=== PATIENT | male | born 1965 | race Caucasian/White ===

== ENCOUNTER → 2024-11-26 12:28 | Outpatient (REF) | payer BC, SELFPAY | LOC: RSP 12:28 | PROVIDERS: ATTENDING PHYSICIAN Family Medicine | DX: F17.210 Nicotine dependence, cigarettes, uncomplicated (principal) | CPT/HCPCS: 94727; 94729; 88738; 94060 ==

== ENCOUNTER → 2024-11-27 13:37 | Outpatient (REF) | payer BC, SELFPAY | LOC: HWRAD 13:37 | PROVIDERS: ATTENDING PHYSICIAN Family Medicine | DX: F17.210 Nicotine dependence, cigarettes, uncomplicated (principal) | CPT/HCPCS: 71271 ==

== ENCOUNTER 2025-02-23 08:18 | Emergency (ER) | payer BC, SELFPAY ==
[2025-02-23 08:29] VITALS: BP 165/97
[2025-02-23 08:55] VITALS: BMI 23.1
--- NOTE | 2025-02-23 09:05 | EDRN ---
Dr. Suresh in to see pt.
--- NOTE | 2025-02-23 09:05 | ED.GENMED ---
History of Present Illness
General
Chief Complaint: Abdominal Pain
Source: patient
Exam Limitations: none
Time Seen by Provider: 02/23/25 09:01
History of Present Illness
History of Present Illness:
See MDM
Past History
Past History
ED Past Medical History: NIDDM and Other (Polycystic liver disease)
ED Past Surgical History: Tonsilectomy and Urological
Social History
Tobacco: Former smoker
Personal:
Phy Exam
Physical Exam
Physical Exam:
See MDM
Course
Orders/Labs/Results
Orders:
Orders
02/23/25 08:48
IV Insert/Care/Rem.- Treatment PRN
02/23/25 09:04
0.9% Sodium Chloride 1000 ml [Nss] 1,000 ml IV BOLUS
Ketorolac [Toradol] 30 mg IV NOW STA
Ondansetron Injectable [Zofran] 4 mg IV NOW STA
02/23/25 09:05
CT Abd/pelvis W Iv Cont Urgent
Comment:
Reason For Exam: mid upper abd pain, vomiting
02/23/25 09:07
Complete Blood Count/With Diff Urgent
Comprehensive Metabolic Panel Urgent
Lipase Urgent
02/23/25 10:46
Dicyclomine [Bentyl] 10 mg PO NOW STA
Oxycodone/Acetaminophen [Percocet 5/325] 1 tablet PO NOW STA
Abnormal Lab Results
02/23/25
09:07
WBC 13.0 H 10^3/uL
(4.8-10.8)
Hgb 18.3 H g/dL
(13.0-18.0)
MCH 31.5 H pg
(27.0-31.0)
Abs Immat Gran (auto) 0.1 H 10^3/uL
(0-0.05)
Absolute Neuts (auto) 11.1 H 10^3/uL
(1.4-6.5)
Absolute Lymphs (auto) 0.9 L 10^3/uL
(1.2-3.4)
Absolute Monos (auto) 0.8 H 10^3/uL
(0.1-0.6)
Immature Gran % 0.7 H %
(0-0.5)
Neutrophils % 85.1 H %
(42.2-75.2)
Lymphocytes % 6.8 L %
(20.5-51.1)
Carbon Dioxide 31 H mmol/L
(22-30)
Glucose 154 H mg/dl
(70-99)
02/23/25 09:07
02/23/25 09:07
Vital Signs
Initial and Last Documented VS:
Initial Vital Signs
Temp Pulse Resp BP Pulse Ox
97 F 70 18 165/97 97
02/23/25 08:29 02/23/25 08:29 02/23/25 08:29 02/23/25 08:29 02/23/25 08:29
Last Documented Vital Signs
Temp Pulse Resp BP Pulse Ox
97 F 87 16 142/82 93
02/23/25 08:29 02/23/25 10:18 02/23/25 10:18 02/23/25 10:18 02/23/25 10:18
MDM/Problems Addressed
Differential Diagnosis Includes:
HPI and MDM Narrative:
59-year-old male presenting with mid upper abdominal pain. Patient noted the pain overnight. He did have some alcoholic drinks last night but denies any excess drinking. Patient initially thought this could be gastritis since he has had similar
episodes in the past. However, antacids were not helping and he started to vomit. On exam, he is well-appearing nontoxic. I cannot reproduce pain on exam.
I did discuss with patient that I cannot reliably rule out gastritis just from physical exam alone. He does acknowledge that. Given his prior history of small bowel obstruction, will obtain CT
Physical exam
General: Well appearing and non-toxic
HEENT: protecting airway. Mildly dry mucous membranes
Neck: appears supple
CV: No evidence of cyanosis
Resp: No accessory muscle use
Abd: Non-distended. No significant abdominal tenderness.
Extremities: No deformities
Neuro: alert
Psych: Normal affect
Skin: Intact
Problems Addressed including Acute and Chronic Conditions affecting care:
1. Abdominal pain
Acuity: acute
Prognosis: stable
Details: Discussed likely gastritis but will obtain CT given prior history of small bowel obstruction. Will give Toradol
2. Nausea and vomiting
Acuity: acute
Prognosis: stable
Details: Will give fluids and Zofran
Updates
CT is concerning for possible inflammatory bowel disease. We discussed calling GI for follow-up.
Differential Diagnosis (but not limited to): Gastritis, pancreatitis, enteritis
Testing considered: Abdominal x-ray
Drug therapy (if applicable): OTC meds, please see d/c instruction regarding Rx drugs
Amount and/or Complexity of Data Reviewed
Clinical info obtained from: Patient
External data reviewed: Prior history of small bowel obstruction which was managed medically
Labs I independently reviewed (but not limited to): Mild leukocytosis
Radiology: The CT scan was personally and independently reviewed. In addition, official CT report reviewed.
Pulse Ox: not hypoxic
EKG independently reviewed: N/A
Cell Repairer: N/A
Critical Care: N/A
Risk of Complication:
Social Determinants of health: Good social support
Discussed with other providers: N/A
Escalation of Care includes Admit/Obs: After being observed in the Emergency Department, pt stable for discharge.
Occasional wrong word or 'sound a like' substitutions may have occurred due to the inherent limitations of voice recognition software. Read the chart carefully and recognize, using context, where substitutions have occurred.
*Critical Care Note
Total Time (30-74mins, 75-104mins- exclusive of procedures): Not Applicable
ED Attending Note
-
Portions of this chart may have been created with voice recognition software.� Occasional wrong word or��sound alike� substitutions may have occurred due to the inherent limitations of voice recognition software.
Discharge Plan
Departure
Patient Disposition: Home (Routine Discharge)
Date of Disposition: 02/23/25
Time of Disposition: 10:48
Patient with high blood pressure during this ER visit?: Yes
Discharge Problem:
Abdominal pain
Instructions: Abdominal Pain, BLOOD PRESSURE
Prescriptions:
New
ondansetron 4 mg Tablet,Disintegrating
4 mg PO BIDPRN PRN (Reason: nausea/vomiting) Qty: 10 0RF
dicyclomine 10 mg capsule
10 mg PO BID PRN (Reason: Stomach pain) Qty: 20 0RF
No Action
metformin 500 mg Tablet
500 mg PO DAILY
azelastine 137 mcg (0.1 %) Aerosol,Olpe
1 spray INTRANASAL BID
fluticasone propionate [Flonase Allergy Relief] 50 mcg/actuation Olpe,Suspension
1 spray INTRANASAL DAILY
Referrals:
Hank Gómez MD [Family Provider] -
Tanvi Madrid MD [Active] -
Activity Restrictions/Additional Instructions:
Please return for any worsening symptoms.
You may return at any time if you have further concerns.
Please follow up with your doctor at the first available appointment, preferably this week.
As we discussed, the CT scan raised concern for possible inflammatory bowel disease such as Crohn's disease. Please have this discussed with the roving department end finder.
Thank you for choosing [facility].
Interventions
Interventions:
*Risk Screen - Suicide Last Done: 02/23/25 08:29
*General Assessment Last Done: 02/23/25 08:55
*Neglect/Abuse Screening Last Done: 02/23/25 08:29
*ED- Fall Risk Assessment Last Done: 02/23/25 08:55
*ED COVID-19 Vaccine History Last Done: 02/23/25 08:55
DA-Xlpbqd-Bgpwmsffnc Assessment Last Done: 02/23/25 09:21
Discharge Date and Time
Print Language: BELARUSIAN
[2025-02-23] MEDS: NSS 1000 IV (09:15)
[2025-02-23] MEDS: TORADOL 30 MG IV (09:16)
[2025-02-23] MEDS: ZOFRAN 4 MG IV (09:17)
[2025-02-23 09:21] VITALS: BP 144/99
[2025-02-23 09:29] LABS: Hemoglobin 18.3 g/dL (13.0-18.0); Mean Corp Hgb Conc. 35.2 g/dL (33.0-37.0); Mean Corpuscular Hgb 31.5 pg (27.0-31.0); Mean Corpuscular Volume 89.5 fL (80.0-94.0); Mean Platelet Volume 8.8 fL (7.4-10.4); Platelet Count 262 10^3/uL (130-400); Red Blood Cell Count 5.81 10^6/uL (4.70-6.10); Red Cell Dist. Width 12.2 % (11.5-14.5)
[2025-02-23 09:37] LABS: ALT (SGPT) 20 U/L (0-50); AST (SGOT) 27 U/L (17-59); Alkaline Phosphatase 79 U/L (38-126); Blood Urea Nitrogen 16 mg/dl (9-20); Calcium 10.1 mg/dl (8.4-10.2); Carbon Dioxide 31 mmol/L (22-30); Chloride 101 mmol/L (98-107); Estimated Creatinine Clearance 76 ml/min; Glucose 154 mg/dl (70-99); Lipase 165 U/L (23-300); Potassium 4.6 mmol/L (3.5-5.1); Sodium 141 mmol/L (135-145); Total Bilirubin 0.9 mg/dl (0.2-1.3); eGFR > 60.00
[2025-02-23 09:45] LABS: % Basophils 0.3 % (0-2); % Eosinophils 0.8 % (0-6); % Immature Granulocytes 0.7 % (0-0.5); % Lymphocytes 6.8 % (20.5-51.1); % Monocytes 6.3 % (1.7-9.3); % Neutrophils 85.1 % (42.2-75.2); Absolute Eosinophils 0.1 10^3/uL (0-0.7); Absolute Immature Granulocytes 0.1 10^3/uL (0-0.05); Absolute Lymphocytes 0.9 10^3/uL (1.2-3.4); Absolute Monocytes 0.8 10^3/uL (0.1-0.6); Absolute Neutrophils 11.1 10^3/uL (1.4-6.5); Nucleated Red Blood Cells % 0 % (-)
[2025-02-23 10:18] VITALS: BP 142/82
--- NOTE | 2025-02-23 10:43 | EDRN ---
Dr. Suresh in room w/pt at this time.
[2025-02-23] MEDS: PERCOCET 5/325 1 TABLET PO (10:56)
[2025-02-23] MEDS: BENTYL 10 MG PO (10:56)
[2025-02-23 11:09] VITALS: BP 138/84
== END 2025-02-23 11:10 | disposition home or self-care (01) ==
LOC: EMR 08:18
PROVIDERS: Emergency Medicine; EMERGENCY PHYSICIAN Student in an Organized Health Care Education/Training Program; FAMILY PHYSICIAN Family Medicine
DX: R10.9 Unspecified abdominal pain (principal); E11.9 Type 2 diabetes mellitus without complications; Z87.891 Personal history of nicotine dependence
CPT/HCPCS: 99284; 96374; 96375; 96361; 74177; 80053; 83690; 85025; Q9967

== ENCOUNTER 2025-04-28 06:27 | Day surgery (SDC) | payer BC, SELFPAY ==
[2025-04-28 12:22] LABS: Glucose - Point of Care 119 mg/dl (70-99)
== END 2025-04-28 15:37 | disposition home or self-care (01) ==
LOC: GI 06:27
PROVIDERS: ATTENDING PHYSICIAN Internal Medicine Gastroenterology
DX: R93.3 Abnormal findings on diagnostic imaging of other parts of digestive tract (principal); K63.3 Ulcer of intestine; R19.4 Change in bowel habit; K44.9 Diaphragmatic hernia without obstruction or gangrene; D12.3 Benign neoplasm of transverse colon; D12.2 Benign neoplasm of ascending colon; K63.5 Polyp of colon; K50.00 Crohn's disease of small intestine without complications
CPT/HCPCS: 45385; 45380; 43239; 88305; 82962

== ENCOUNTER → 2025-05-23 12:08 | Outpatient (REF) | payer BC, SELFPAY | LOC: MRI 3T 12:08 | PROVIDERS: ATTENDING PHYSICIAN Internal Medicine Gastroenterology; FAMILY PHYSICIAN Family Medicine | DX: R93.5 Abnormal findings on diagnostic imaging of other abdominal regions, including retroperitoneum (principal); K56.600 Partial intestinal obstruction, unspecified as to cause; K52.9 Noninfective gastroenteritis and colitis, unspecified; R63.4 Abnormal weight loss | CPT/HCPCS: 72197; 74183; A9585 ==

== ENCOUNTER 2025-07-18 20:54 | Inpatient (IN) | payer OTHER, SELFPAY ==
[2025-07-18 17:38] VITALS: BP 138/96
[2025-07-18 17:56] LABS: Hematocrit 47.5 % (39.0-52.0); Hemoglobin 16.4 g/dL (13.0-18.0); Mean Corp Hgb Conc. 34.5 g/dL (33.0-37.0); Mean Corpuscular Volume 85.7 fL (80.0-94.0); Nucleated Red Blood Cells % 0 % (-); Platelet Count 328 10^3/uL (130-400); Red Cell Dist. Width 13.3 % (11.5-14.5)
[2025-07-18 18:17] LABS: ALT (SGPT) 17 U/L (0-50); AST (SGOT) 24 U/L (17-59); Albumin 3.6 g/dl (3.5-5.0); Alkaline Phosphatase 58 U/L (38-126); Blood Urea Nitrogen 17 mg/dl (9-20); Calcium 9.9 mg/dl (8.4-10.2); Carbon Dioxide 31 mmol/L (22-30); Chloride 101 mmol/L (98-107); Glucose 138 mg/dl (70-99); Lipase 188 U/L (23-300); Potassium 4.0 mmol/L (3.5-5.1); Sodium 135 mmol/L (135-145); Total Protein 6.6 g/dl (6.3-8.2); eGFR > 60.00
[2025-07-18 18:26] LABS: Troponin I < 0.012 ng/ml
[2025-07-18 18:28] VITALS: BMI 20.6
--- NOTE | 2025-07-18 18:31 | EDRN ---
Alejandrina Carr PA in room w/ pt at this time.
--- NOTE | 2025-07-18 18:35 | ED.GENMED ---
History of Present Illness
<Kahlil Carr PA-C - Last Filed: 07/18/25 22:26>
General
Chief Complaint: Abdominal Symptoms
Time Seen by Provider: 07/18/25 18:24
History of Present Illness
History of Present Illness:
59-year-old male with recent diagnosis of Crohn's presents to the emergency department for evaluation of intractable nausea vomiting with hiccups and abdominal pain beginning late last night. He had a second dose of Skyrizi yesterday. Sent in by
GI with concern for SBO. Has passed flatus today but no bowel movements. No fevers or sweats.
Past History
<Kahlil Carr PA-C - Last Filed: 07/18/25 22:26>
Past History
ED Past Medical History: NIDDM and Other (Polycystic liver disease)
ED Past Surgical History: Tonsilectomy and Urological
Social History
Tobacco: Former smoker
Personal:
Review of Systems
<Kahlil Carr PA-C - Last Filed: 07/18/25 22:26>
Review of Systems
Allergies reviewed?: Yes
All Other Systems: ROS reviewed and negative except as documented in HPI and ROS
Phy Exam
<Kahlil Carr PA-C - Last Filed: 07/18/25 22:26>
Physical Exam
Physical Exam:
GEN: Well appearing, NAD, WDWN
HEENT: Oral mucosa moist, no scleral icterus
Cardiac: Regular rate
Lung: No respiratory distress, no tachypnea
Abdomen: Soft, mildly distended but no rigidity, grossly nontender
MSK: No gross deformity or injuries
Skin: Good color, no pallor or jaundice, no rashes
Neuro: AO x3, moves all extremities freely
Psych: Calm, cooperative
Course
<Kahlil Carr PA-C - Last Filed: 07/18/25 22:26>
Orders/Labs/Results
Orders:
Orders
07/18/25 17:41
Electrocardiogram (*1) Urgent
Reason for Study: Abdominal Pain
07/18/25 17:47
CMP [Comprehensive Metabolic Panel] Urgent
Complete Blood Count/With Diff Urgent
Lipase Urgent
Troponin I Urgent
07/18/25 18:29
CT Abd/Pel (IV only)-[facility] only Urgent
Comment:
Reason For Exam: abd pain, N/V, hx of Crohn's
07/18/25 18:34
HYDROmorphone [Dilaudid] 0.5 mg IV NOW STA
07/18/25 18:41
ChlorproMAZINE [Thorazine] 25 mg 0.9% Sodium Chloride 50 ml [Nss] 50 ml IV NOW
07/18/25 18:47
0.9% Sodium Chloride 1000 ml [Nss] 1,000 ml IV BOLUS
0.9% Sodium Chloride 500 ml [Nss] 1,000 ml IV BOLUS
07/18/25 20:19
MethylPREDNISolone PF [Solu-Medrol Pf] 60 mg IV NOW STA
07/18/25 20:23
Lidocaine 2% [Lidocaine Uro-Jet 2%] 1 syringe .ROUTE .STK-MED ONE
07/18/25 20:35
HYDROmorphone [Dilaudid] 0.5 mg IV NOW STA
07/18/25 20:43
Admit/Transfer Patient As Directed
Co-Sign Provider:
Level of Care: Inpatient admission
Assign to:: Medical/Surgical
Physician / Group: laura
Diagnosis: distal small bowel obstruction
Reason for Hospitalization: distal small bowel obstruction
Expected length of stay greater than two midnights?: Yes
ELOS- Estimated Length of Stay in days: 2
I certify the patient meets the requirements for IP care: Yes
07/18/25 20:44
Code Status As Directed
Resuscitation Status: Full Code
PRN Pain Medication Management As Directed
May give lesser potent ordered pain med per pt: Yes
preference::
Protocol:: Medication orders for pain may be administered in a
manner that supports deferring to patient preference
when the pt is:
- Requesting an ordered lesser potent pain medication.
Least to most potent pain medications are defined
as: acetaminophen < NSAID < tramadol < opioids
(morphine, oxycodone, hydromorphone).
- Requesting a lesser dose of the same medication IF
ORDERED.
- Requesting a less intrusive route of administration
if both routes are prescribed by the provider (PO <
IV).
Abnormal Lab Results
07/18/25
17:47
WBC 18.2 H 10^3/uL
(4.8-10.8)
Abs Immat Gran (auto) 0.1 H 10^3/uL
(0-0.05)
Absolute Neuts (auto) 15.6 H 10^3/uL
(1.4-6.5)
Absolute Monos (auto) 0.9 H 10^3/uL
(0.1-0.6)
Immature Gran % 0.6 H %
(0-0.5)
Neutrophils % 85.8 H %
(42.2-75.2)
Lymphocytes % 7.5 L %
(20.5-51.1)
Carbon Dioxide 31 H mmol/L
(22-30)
Glucose 138 H mg/dl
(70-99)
07/18/25 17:47
07/18/25 17:47
Vital Signs
Initial and Last Documented VS:
Initial Vital Signs
Temp Pulse Resp BP Pulse Ox
98.2 F 77 18 138/96 98
07/18/25 17:38 07/18/25 17:38 07/18/25 17:38 07/18/25 17:38 07/18/25 17:38
Last Documented Vital Signs
Temp Pulse Resp BP Pulse Ox
97.8 F 74 20 146/84 96
07/18/25 19:47 07/18/25 21:48 07/18/25 21:48 07/18/25 21:48 07/18/25 21:48
<Jag Suresh, DO - Last Filed: 07/18/25 20:19>
Orders/Labs/Results
Orders:
Orders
07/18/25 17:41
Electrocardiogram (*1) Urgent
Reason for Study: Abdominal Pain
07/18/25 17:47
CMP [Comprehensive Metabolic Panel] Urgent
Complete Blood Count/With Diff Urgent
Lipase Urgent
Troponin I Urgent
07/18/25 18:29
CT Abd/Pel (IV only)-[facility] only Urgent
Comment:
Reason For Exam: abd pain, N/V, hx of Crohn's
07/18/25 18:34
HYDROmorphone [Dilaudid] 0.5 mg IV NOW STA
07/18/25 18:41
ChlorproMAZINE [Thorazine] 25 mg 0.9% Sodium Chloride 50 ml [Nss] 50 ml IV NOW
07/18/25 18:47
0.9% Sodium Chloride 1000 ml [Nss] 1,000 ml IV BOLUS
0.9% Sodium Chloride 500 ml [Nss] 1,000 ml IV BOLUS
07/18/25 20:19
MethylPREDNISolone PF [Solu-Medrol Pf] 60 mg IV NOW STA
07/18/25 20:23
Lidocaine 2% [Lidocaine Uro-Jet 2%] 1 syringe .ROUTE .STK-MED ONE
07/18/25 20:35
HYDROmorphone [Dilaudid] 0.5 mg IV NOW STA
07/18/25 20:43
Admit/Transfer Patient As Directed
Co-Sign Provider:
Level of Care: Inpatient admission
Assign to:: Medical/Surgical
Physician / Group: laura
Diagnosis: distal small bowel obstruction
Reason for Hospitalization: distal small bowel obstruction
Expected length of stay greater than two midnights?: Yes
ELOS- Estimated Length of Stay in days: 2
I certify the patient meets the requirements for IP care: Yes
07/18/25 20:44
Code Status As Directed
Resuscitation Status: Full Code
PRN Pain Medication Management As Directed
May give lesser potent ordered pain med per pt: Yes
preference::
Protocol:: Medication orders for pain may be administered in a
manner that supports deferring to patient preference
when the pt is:
- Requesting an ordered lesser potent pain medication.
Least to most potent pain medications are defined
as: acetaminophen < NSAID < tramadol < opioids
(morphine, oxycodone, hydromorphone).
- Requesting a lesser dose of the same medication IF
ORDERED.
- Requesting a less intrusive route of administration
if both routes are prescribed by the provider (PO <
IV).
Abnormal Lab Results
07/18/25
17:47
WBC 18.2 H 10^3/uL
(4.8-10.8)
Abs Immat Gran (auto) 0.1 H 10^3/uL
(0-0.05)
Absolute Neuts (auto) 15.6 H 10^3/uL
(1.4-6.5)
Absolute Monos (auto) 0.9 H 10^3/uL
(0.1-0.6)
Immature Gran % 0.6 H %
(0-0.5)
Neutrophils % 85.8 H %
(42.2-75.2)
Lymphocytes % 7.5 L %
(20.5-51.1)
Carbon Dioxide 31 H mmol/L
(22-30)
Glucose 138 H mg/dl
(70-99)
07/18/25 17:47
07/18/25 17:47
Vital Signs
Initial and Last Documented VS:
Initial Vital Signs
Temp Pulse Resp BP Pulse Ox
98.2 F 77 18 138/96 98
07/18/25 17:38 07/18/25 17:38 07/18/25 17:38 07/18/25 17:38 07/18/25 17:38
Last Documented Vital Signs
Temp Pulse Resp BP Pulse Ox
97.8 F 74 20 146/84 96
07/18/25 19:47 07/18/25 21:48 07/18/25 21:48 07/18/25 21:48 07/18/25 21:48
<Kahlil Carr PA-C - Last Filed: 07/18/25 22:26>
MDM/Problems Addressed
MDM/Problems Addressed:
Imaging reveals small bowel obstruction with transition point at the distal small bowel likely resulting from stricture due to Crohn's. NG tube placed, will admit, IV steroids initiated per GI team request
<Kahlil Carr PA-C - Last Filed: 07/18/25 22:26>
*Pulse Oximetry
SaO2: 98
Oxygen Mode of Delivery: Room air
Patient hypoxic: no
*Critical Care Note
Total Time (30-74mins, 75-104mins- exclusive of procedures): Not Applicable
ED Attending Note
<Kahlil Carr PA-C - Last Filed: 07/18/25 22:26>
-
Portions of this chart may have been created with voice recognition software.� Occasional wrong word or��sound alike� substitutions may have occurred due to the inherent limitations of voice recognition software.
<Jag Suresh, DO - Last Filed: 07/18/25 20:19>
ED Attending Note
Patient seen and examined by attending physician: Yes
I performed the substantive portion of visit, reviewed & personally made and approve the management plan that is documented in note by myself or QUYNH.: Yes
ED Attending Note:
I have seen and evaluated the patient with a [id number]-jfdd encounter. I have spoken to the advance practicer provider and involved in the medical history, the physical exam, medical decision making.
Evaluation and management service: agree unless noted differently below.
Results interpretation: agree unless noted differently below.
Focused HPI: 59-year-old male presenting for evaluation of abdominal pain and vomiting. Patient was recently diagnosed with Crohn's disease. Based on his symptoms, he was sent in to rule out Crohn's flare versus small bowel obstruction
Physical exam: By the time I evaluate the patient, patient has already received pain medicine. On my exam, he is lying in bed comfortably. Abdomen soft
Medical Decision Making: CT pending but given his symptoms, patient will likely require admission for GI evaluation
Discharge Plan
Departure
Patient Disposition: Admit
Date of Disposition: 07/18/25
Time of Disposition: 20:26
Admit to: Med/Surg
Presentation/result/management discussed w/ accepting MD/DO: Hospitalist
Discharge Problem:
Small bowel obstruction, Crohn's ileocolitis
Interventions
Interventions:
*Risk Screen - Suicide Last Done: 07/18/25 18:35
*General Assessment Last Done: 07/18/25 18:28
*Neglect/Abuse Screening Last Done: 07/18/25 18:35
*ED- Fall Risk Assessment Last Done: 07/18/25 18:28
*ED COVID-19 Vaccine History Last Done: 07/18/25 18:28
SN-Ghczwa-Fcrqusyyex Assessment Last Done: 07/18/25 19:47
[2025-07-18] MEDS: DILAUDID 0.5 MG IV ×2 (18:42→20:39)
--- NOTE | 2025-07-18 18:42 | EDRN ---
Pharmacy called for randall at this time.
[2025-07-18] MEDS: NSS 1000 IV (18:48)
[2025-07-18] MEDS: THORAZINE 51 MG IV (18:58)
[2025-07-18 19:47] VITALS: BP 141/76
[2025-07-18] MEDS: SOLU-MEDROL PF 60 MG IV (20:38)
--- NOTE | 2025-07-18 20:49 | HPS.HSE ---
Family Physician
-
Family Physician: Hank Gómez
Chief Complaint
-
abdominal pain
History of Present Illness
59-year-old male past medical history of polycystic liver/kidney disease, Crohn's disease diagnosed this year on Skyrizi, prior small bowel obstruction, anxiety/depression, prediabetes, hyperlipidemia, presenting with intractable nausea and
vomiting, hiccups, abdominal pain starting last night. He was sent in by GI due to concern for small bowel obstruction. He passed gas today but no bowel movements. Last bowel movement yesterday. Denies fever or sweating.
He denies any prior intra-abdominal surgeries.
He was diagnosed with Crohn's disease earlier this year and only received a second dose of Skyrizi.
Denies smoking alcohol use.
Medical History
Past Medical History
Past Medical History: Reports Other (polycystic liver/kidney disease, Crohn's disease diagnosed this year on Skyrizi, prior small bowel obstruction, anxiety/depression, prediabetes, hyperlipidemia,)
Past Surgical History: Reports Other (Tonsilectomy and Urological)
Social History
Tobacco: Non-smoker
Alcohol: None
Drug: None
Family History
Family History: Not pertinent
Allergies / Home Medications
Allergies reflects when Allergies were last updated in [employer].
Home Medications with original date entered in [employer]
Allergy/Medication List:
Allergies
Allergy/AdvReac Type Severity Reaction Status Date / Time
No Known Allergies Allergy Verified 02/23/25 08:29
Home Medications
metformin 500 mg tablet 500 mg PO DAILY 08/04/22
fluticasone propionate 50 mcg/actuation nasal spray,suspension (Flonase Allergy Relief) 1 spray intranasal DAILY 04/26/23
dicyclomine 10 mg capsule 10 mg PO BID PRN Stomach pain #20 caps 02/23/25
ondansetron 4 mg disintegrating tablet 4 mg PO BIDPRN PRN nausea/vomiting #10 tabs 02/23/25
Lexapro 20 mg PO DAILY 07/18/25
Wellbutrin 1 tab PO DAILY 07/18/25
Review of Systems
-
History Source: Patient
A 12 point ROS was completed and negative except as noted: Yes
Constitutional: Reports No Symptoms
EENT: Reports No Symptoms
Respiratory: Reports No Symptoms
Cardiac: Reports No Symptoms
Abdomen/GI: Reports See HPI
: Reports No Symptoms
Musculoskeletal: Reports No Symptoms
Skin: Reports No Symptoms
Neurological: Reports No Symptoms
Endocrine: Reports No Symptoms
Hematologic/Lymphatic: Reports No Symptoms
Psych: Reports No Symptoms
Physical Exam
Vital Signs
Vital Signs
Temp Pulse Resp BP Pulse Ox
97.8 F 87 20 141/76 95
07/18/25 19:47 07/18/25 19:47 07/18/25 19:47 07/18/25 19:47 07/18/25 19:47
Physical Exam
General: Well Developed, Well Nourished and No Apparent Distress
HEENT: NormoCephalic, Moist mucous membranes and Atraumatic
Respiratory: Clear
Cardiac: S1/S2 and Regular Rhythm; No Murmur or Rub
GI: Soft, Non Distended, Normal Bowel Sounds and Tender (periumbilical ); No Organomegaly
Rectal: Deferred by Provider
Musculoskeletal: No Clubbing, No Cyanosis and No Edema
Skin: No Rash
Neuro: Nonfocal/grossly intact
Laboratory Results
-
07/18/25 17:47
07/18/25 17:47
Laboratory Results
Total Bilirubin 0.6 mg/dl (0.2-1.3) 07/18/25 17:47
AST 24 U/L (17-59) 07/18/25 17:47
ALT 17 U/L (0-50) 07/18/25 17:47
Alkaline Phosphatase 58 U/L (38-126) 07/18/25 17:47
Troponin I < 0.012 ng/ml 07/18/25 17:47
Lipase 188 U/L (23-300) 07/18/25 17:47
Data Reviewed
-
Lab Data: Labs Reviewed by me
Old Records: Reviewed
Impression/Plan
-
IMPRESSION:
PLAN:
# Distal small bowel obstruction secondary to stricture likely from Crohn's disease
# Crohn's disease on Skyrizi
- CT scan shows distal small bowel structure with transition point in the lower anterior pelvis likely secondary to stricture, scattered areas of bowel wall thickening consistent with inflammatory bowel disease
- N.p.o. including oral medications for now
- IV fluids
- Zofran, Dilaudid as needed
-NG tube to be placed
- GI consulted
- General Surgery consulted
History of prior small bowel obstruction
Polycystic liver disease
Prediabetes
- Hold metformin
- Insulin sliding scale
Anxiety/depression
- Continue Lexapro, Wellbutrin
Hyperlipidemia
Full code
DVT prophylaxis�heparin
N.p.o.
[2025-07-18 20:53] VITALS: BP 156/83
[2025-07-18 21:48] VITALS: BP 146/84
[2025-07-18 23:18] VITALS: BP 146/81; BMI 21.5
[2025-07-19] MEDS: NSS 1000 IV ×3 (00:01→19:13)
[2025-07-19] MEDS: DILAUDID 0.5 MG IV (00:23)
[2025-07-19 05:53] LABS: Glucose - Point of Care 134 mg/dl (70-99)
--- NOTE | 2025-07-19 06:46 | CON.GI ---
Addendum entered and electronically signed by Gregoria Coley MD 07/19/25 11:48:
I saw and examined the patient.
The DRAWING CHECKER or PA's note was reviewed and I agree with the note.
Comment:
This patient is a 59-year-old man with a history of hypercholesterolemia and Crohn's disease who has a history of intermittent partial small bowel obstructions and he was recently started on Skyrizi for Crohn's disease. He was admitted after he had
significant abdominal distention and vomiting with hiccups. He did have an NG tube placed and was given IV steroids. Labs done last month do show an elevated fecal calprotectin at 5690. His NG tube did drain 1600 cc and has now since decreased.
He does admit to weight loss and on admission did have a white blood count.
abd: currently soft and nondistended, nontender
impression:
crohns
PSBO: inflammatory vs stricturing
plan:
IV steroids
recheck sed rate, crp
continue NGT and monitor output
surgery following
antiemetics
sq heparin
Original Note:
Consultation
-
Date/Time Consultation Requested: 07/18/25 2240
Date/Time Consultation Performed: 07/19/25 0815
Requesting Provider: Christofer Pablo MD
Performing Provider: MEGAN Wall, Gregoria Coley MD
Reason for Consultation: small bowel obstruction/ hx crohn's disease
Medical History
Chief Complaint / HPI
Chief Complaint: abdominal pain, vomiting
History of Present Illness:
Pt is a 59yo with hx hypercholesterolemia, pre DM, anxiety/depression, polycystic liver disease, retroperitoneal lymphangiomatosis, melanoma, tobacco abuse, daily Marijuana use, b/l ocular HTN, meningitis, glaucoma and newly diagnosed crohns
disease. Pt has history of colonoscopy in 2014 with TI erosions, PSBO in 2021 and 2022 with possible gastroenteritis then presented in January with recurrent abdominal pain with nausea and vomiting with SB thickening and concern for crohns disease.
He had follow up with Dr. Owen in February and completed EGD, colonoscopy and MRE with continued concern for crohns disease. Pt was started on Skyrizi on 06/19 and went for second dose 07/17/25. He called on office 07/18 with concern for vomiting,
hiccups and abdominal pain and directed to ER. On admission noted with CT concern for distal SBO likely secondary to stricture. NGT was placed and IV steroids given on admission. 06/10 CRP 44, ESR 41, fecal radha 5690.
In review with patient he did not recall any concern for IBD in 2014 with colonoscopy. He then began with obstruction then crohns diagnosis as above. He admits to recent anxiety and depression issues with tapia of medication with Lexapro and
diarrhea several months ago. He began about 10 days prior to admission with vomiting after crab imperial. Symptoms then resolved and he the started again with vomiting on 07/19 in the AM and symptoms progressed with increased pain leading to
admission. Pt otherwise admits to GERD which is new with nausea/vomiting initially small volume dark brown emesis then large volume up to 1600ml recorded after NGT placement with continued drainage. He admits to improved abdominal pain, and admits
to diarrhea several months ago and occasional constipation. + 25 lbs wt loss over last few months. No blood or black in stools. On admission WBC 18,200, glucose 138 with otherwise stable labs. Denies NSAID use.
07/18/25 CT Abd/Pel (IV only)-DH only
1. Distal small bowel obstruction with transition point in the low anterior pelvis likely secondary to stricture.
2. Scattered areas of bowel wall thickening in keeping with inflammatory bowel disease
05/23/25- MRE Multiple regions of abnormal wall thickening and enhancement of the small bowel, including the distal ileum. Findings very likely represent Crohn's disease with skip areas of small bowel involvement.
No evidence for significant bowel obstruction at this time.Hepatomegaly with innumerable hepatic cysts. Cholelithiasis. No evidence for biliary ductal dilation.
04/28/25- colonoscopy 2- 4-6 mm polyp TC- TA , 1 -6 mm TA polyp CA, 1 - 6 mm polyp DC - HP, few ulcer TI c/w crohns disease - bx focal acute mucosal ulceration, with chronic active ileitis glandular crypt distortion
04/28/25- EGD normal esophagus, small HH normal duodenum SB bx neg
Past Medical History
Past Medical History: Hypercholesterolemia, NIDDM (pre DM), Psychiatric (anxiety/depression) and Other (polycystic liver disease, crohns disease, retroperitoneal lymphangiomatosis, melanoma, b/l ocular HTN, meningitis, glaucoma)
Past Surgical History: Tonsilectomy, Urological (vasectomy) and Other (adenoidectomy)
Social History
Tobacco: Smoker (<1/2 PPD )
Alcohol: None
Drug: Marijuana
Personal:
Living: With Family
Employment: Employed (current medical leave )
Family History
Family History: Other (no family hx UC or crohns )
Allergies / Home Medications
Allergy/AdvReac Type Severity Reaction Status Date / Time
No Known Allergies Allergy Verified 02/23/25 08:29
�Medication �Instructions �Recorded
metformin 500 mg tablet 500 mg PO DAILY 08/04/22
fluticasone propionate 50 1 spray intranasal DAILY 04/26/23
mcg/actuation nasal
spray,suspension (Flonase Allergy
Relief)
dicyclomine 10 mg capsule 10 mg PO BID PRN Stomach pain #20 02/23/25
caps
ondansetron 4 mg disintegrating 4 mg PO BIDPRN PRN nausea/vomiting 02/23/25
tablet #10 tabs
Lexapro 20 mg PO DAILY 07/18/25
Wellbutrin 1 tab PO DAILY 07/18/25
Review of Systems
-
History Source: Patient
Constitutional: Reports Weight Loss
EENT: Reports No Symptoms
Respiratory: Reports No Symptoms
Abdomen/GI: Reports Abdominal Pain, Nausea, Vomiting (dark emesis ), Diarrhea and Constipated
: Reports No Symptoms
Musculoskeletal: Reports No Symptoms
Skin: Reports No Symptoms
Neurological: Reports Weakness and Other (recent anxiety/depression issues)
Endocrine: Reports No Symptoms
Hematologic/Lymphatic: Reports No Symptoms
Vital Signs
Temp Pulse Resp BP Pulse Ox
97.5 F 77 18 146/81 96
07/18/25 23:18 07/18/25 23:18 07/18/25 23:18 07/18/25 23:18 07/18/25 23:18
Physical Exam
Exam
General: Well Developed, Well Nourished and No Apparent Distress
HEENT: Normocephalic and Anicteric
Respiratory: Clear
Cardiac: Regular Rhythm
GI: Soft, Non Distended, Tender (minimal ) and Other (NGT with about 500ml in canister with fecullant brown emesis )
Musculoskeletal: No Clubbing and No Cyanosis
Skin: Warm and Dry
Neuro: Awake, Alert and AO x 3
Psych: Calm
Results
WBC 18.2 10^3/uL (4.8-10.8) H 07/18/25 17:47
Hgb 16.4 g/dL (13.0-18.0) 07/18/25 17:47
Hct 47.5 % (39.0-52.0) 07/18/25 17:47
MCV 85.7 fL (80.0-94.0) 07/18/25 17:47
Plt Count 328 10^3/uL (130-400) 07/18/25 17:47
Absolute Neuts (auto) 15.6 10^3/uL (1.4-6.5) H 07/18/25 17:47
Sodium 135 mmol/L (135-145) 07/18/25 17:47
Potassium 4.0 mmol/L (3.5-5.1) 07/18/25 17:47
Chloride 101 mmol/L (98-107) 07/18/25 17:47
Carbon Dioxide 31 mmol/L (22-30) H 07/18/25 17:47
BUN 17 mg/dl (9-20) 07/18/25 17:47
Creatinine 0.9 mg/dL (0.7-1.3) 07/18/25 17:47
Calcium 9.9 mg/dl (8.4-10.2) 07/18/25 17:47
Total Bilirubin 0.6 mg/dl (0.2-1.3) 07/18/25 17:47
AST 24 U/L (17-59) 07/18/25 17:47
ALT 17 U/L (0-50) 07/18/25 17:47
Alkaline Phosphatase 58 U/L (38-126) 07/18/25 17:47
Lipase 188 U/L (23-300) 07/18/25 17:47
Diagnostic Image Results:
07/18/25 CT Abd/Pel (IV only)-DH only
1. Distal small bowel obstruction with transition point in the low anterior pelvis likely secondary to stricture.
2. Scattered areas of bowel wall thickening in keeping with inflammatory bowel disease
05/23/25- MRE Multiple regions of abnormal wall thickening and enhancement of the small bowel, including the distal ileum. Findings very likely represent Crohn's disease with skip areas of small bowel involvement.
No evidence for significant bowel obstruction at this time.Hepatomegaly with innumerable hepatic cysts. Cholelithiasis. No evidence for biliary ductal dilation.
04/28/25- colonoscopy 2- 4-6 mm polyp TC- TA , 1 -6 mm TA polyp CA, 1 - 6 mm polyp DC - HP, few ulcer TI c/w crohns disease - bx focal acute mucosal ulceration, with chronic active ileitis glandular crypt distortion
04/28/25- EGD normal esophagus, small HH normal duodenum SB bx neg
02/23/2025 CT abdomen pelvis with contrast scattered foci of moderate circumferential small bowel wall thickening probable inflammatory bowel disease, moderate mesenteric lymphadenopathy, mild retroperitoneal adenopathy, mild gastric distention, mild
small bowel dilatation, numerous hypodense hepatic lesions suggesting cysts, hepatomegaly, gallstones
04/25/2023 CT abdomen and pelvis severe distention of the stomach with fluid and distention of the proximal jejunum, possible PSBO secondary to adhesions versus gastroenteritis versus IBD or adynamic ileus, mild mesenteric retroperitoneal nick
hepatis and portacaval lymphadenopathy, polycystic liver disease and mild hepatomegaly, gallstones, mild chronic bilateral renal disease, circumferential wall thickening in the distal esophagus suggesting esophagitis, mild to moderate scarring and
subsegmental atelectasis in the lower lobes
08/04/2022 CT abdomen and pelvis small bowel obstruction with transition point in the pelvis between distended proximal jejunal bowel loops and completely collapsed distal ileal small bowel loops possible adhesive band, moderate diverticulosis
throughout the colon, polycystic liver disease and mild hepatomegaly, nick hepatis portacaval and mesenteric lymphadenopathy mild retroperitoneal lymphadenopathy
10/27/[address] Concepcion few ulcers in the TI- acute and moderate to marked chronic inflammation noted no granulomas, mild inflammation was found at 25- benign colonic mucosa, erosion at 15 cm from anus-benign colonic mucosa passive
vascular congestion and edema, random colon biopsies were negative microscopic colitis.
Assessment / Plan
-
Pt is a 59yo with hx hypercholesterolemia, pre DM, anxiety/depression, polycystic liver disease, retroperitoneal lymphangiomatosis, melanoma, tobacco abuse, daily Marijuana use, b/l ocular HTN, meningitis, glaucoma and newly diagnosed crohns
disease. Pt has history of colonoscopy in 2014 with TI erosions, PSBO in 2021 and 2022 with possible gastroenteritis then presented in January with recurrent abdominal pain with nausea and vomiting with SB thickening and concern for crohns disease.
He had follow up with Dr. Owen in February and completed EGD, colonoscopy and MRE with continued concern for crohns disease. Pt was started on Skyrizi on 06/19 and went for second dose 07/17/25. He called on office 07/18 with concern for vomiting,
hiccups and abdominal pain and directed to ER. On admission noted with CT concern for distal SBO likely secondary to stricture. NGT was placed and IV steroids given on admission. 06/10 CRP 44, ESR 41, fecal radha 5690. In review with patient he
did not recall any concern for IBD in 2014 with colonoscopy. He then began with obstruction then crohns diagnosis as above. He admits to recent anxiety and depression issues with tapia of medication with Lexapro and diarrhea several months ago.
He began about 10 days prior to admission with vomiting after crab imperial. Symptoms then resolved and he the started again with vomiting on 07/19 in the AM and symptoms progressed with increased pain leading to admission. Pt otherwise admits to
GERD which is new with nausea/vomiting initially small volume dark brown emesis then large volume up to 1600ml recorded after NGT placement with continued drainage. He admits to improved abdominal pain, and admits to diarrhea several months ago and
occasional constipation. + 25 lbs wt loss over last few months. No blood or black in stools. On admission WBC 18,200, glucose 138 with otherwise stable labs. Denies NSAID use.
07/18/25 CT Abd/Pel (IV only)-DH only
1. Distal small bowel obstruction with transition point in the low anterior pelvis likely secondary to stricture.
2. Scattered areas of bowel wall thickening in keeping with inflammatory bowel disease
05/23/25- MRE Multiple regions of abnormal wall thickening and enhancement of the small bowel, including the distal ileum. Findings very likely represent Crohn's disease with skip areas of small bowel involvement.
No evidence for significant bowel obstruction at this time.Hepatomegaly with innumerable hepatic cysts. Cholelithiasis. No evidence for biliary ductal dilation.
04/28/25- colonoscopy 2- 4-6 mm polyp TC- TA , 1 -6 mm TA polyp CA, 1 - 6 mm polyp DC - HP, few ulcer TI c/w crohns disease - bx focal acute mucosal ulceration, with chronic active ileitis glandular crypt distortion
04/28/25- EGD normal esophagus, small HH normal duodenum SB bx neg
-distal SBO with concern for crohn's related inflammatory vs stricture
-hx crohn's disease with newly started Skyrizi
-polycystic liver disease
-leukocytosis
-mild elevated FBS with hx pre DM
-anxiety/depression with diarrhea with Lexapro
other med problems:
hypercholesterolemia, pre DM, anxiety/depression, polycystic liver disease, retroperitoneal lymphangiomatosis, melanoma, b/l ocular HTN, meningitis, glaucoma
PLAN:
etiology of symptoms with concern for SBO related to crohns inflammatory vs stricture
pt feeling better with NGT decompression overnight
cont NPO
NGT decompression-- monitor output and stool function
for surgical eval-- discussed risk of stricturing/rupture
PPI added today will continue daily
IV steroids given on admission will continue Methylprednisone 20mg Q 8 hours
OP Skyrizi 2nd dose given 07/17
antiemetics as needed
cont SQ heparin as high risk for DVT with active IBD
monitor FBS per medical team with adding steroids
support given
-
-
Thank you for consultation and allowing me to participate in the patient's care. Please call the software test and validation engineer GI physician during the after hours with any questions or concerns.
[2025-07-19 07:00] VITALS: BP 162/91
[2025-07-19] MEDS: PROTONIX IV 40 MG IV (08:44)
[2025-07-19] MEDS: NSS (PRESERVATIVE FREE) 10 ML IV (08:45)
[2025-07-19] MEDS: HEPARIN 5000 UNITS SC ×2 (08:47→19:13)
[2025-07-19] MEDS: SOLU-MEDROL PF 20 MG IV ×3 (09:00→23:09)
--- NOTE | 2025-07-19 09:30 | W.PN.HOSP.TC ---
Today's Communication/Plan
-
Continue NG tube
Continue steroid treatment
Watch for any worsening abdominal pain
Monitoring sugar levels
Surgical evaluation today
Continue NPO
Assessment / Plan
Assessment / Plan
Assessment:
59-year-old male with a past medical history of polycystic liver/kidney disease, Crohn's disease diagnosed this year and started on Skyrizi (received 2 doses), previous small bowel obstructions, anxiety/depression, prediabetes, hyperlipidemia
presented to the ED due to recent intractable nausea and vomiting along with abdominal pain that started the night before. He was sent in by GI due to concern for possible small bowel obstruction. He has not had any bowel movements however
continues to pass gases. He does not report any fever or sweating. In the ED, he underwent CT scan which showed distal small bowel stricture with transition point in the lower anterior pelvis likely secondary to stricture. NG tube was placed with
continues to drain brown fluid. General surgery was consulted, GI was consulted, patient continued to feel better following drainage of fluid from his NG tube.
Plan:
# Distal small bowel obstruction secondary to stricture likely from Crohn's disease
# Crohn's disease on Skyrizi
- Patient continues to be n.p.o., on NG tube which continues to drain brown fluid. Continue decompression with NG tube
- GI consulted, input appreciated
- General surgery consulted input appreciated
- Continue IV fluids, Zofran and Dilaudid as needed
- Patient started on Protonix due to gastric reflux
- Continue IV steroids, methylprednisolone 20 mg every 8 hours
- Will continue to monitor blood sugar levels initially due to steroid therapy
- Skyrizi second dose was given on 07/17
# Prediabetes
- Continue to hold metformin
- Continue with insulin sliding scale, glucose monitoring
- Will check HbA1c
# Anxiety/depression
- Continue Lexapro and Wellbutrin once able to give medication orally
- Will give IV Valium as needed for increased anxiety until then
# History of prior small bowel obstruction
# Polycystic liver disease
Full code
DVT prophylaxis: Subcu heparin q 12
Anticipated Discharge: 24 - 48 hours
Subjective/Interval History
-
Date of Service: July 19, 2025
Patient seen this morning was resting comfortably in his bed. Had NG tube placed which was continuing to drain dark brownish fluid. Patient's only complaint was the uncomfortable nature of having an NG tube. Otherwise does not report any
abdominal pain, nausea, chest pain at this time. He does report some gastric reflux, heartburn at this time but otherwise no complaints. Feeling much improved from yesterday.
Objective Data
-
Labs:
Laboratory Results
07/19/25
09:09
WBC Pending
Hgb Pending
Hct Pending
Plt Count Pending
Sodium Pending
Potassium Pending
Chloride Pending
Carbon Dioxide Pending
BUN Pending
Creatinine Pending
Glucose Pending
Calcium Pending
Total Bilirubin Pending
AST Pending
ALT Pending
Alkaline Phosphatase Pending
Vital Signs:
Vital Signs
Temp Pulse Resp BP Pulse Ox
98.4 F 81 16 162/91 95
07/19/25 07:00 07/19/25 07:00 07/19/25 07:00 07/19/25 07:00 07/19/25 07:00
I&O
07/18/25 07/19/25 07/20/25
06:59 06:59 06:59
Intake Total 1770 / 1770
Output Total 2400 / 2400
Balance -630 / -630
Review of Systems
-
History Source: Patient
Constitutional: Reports No Symptoms
EENT: Reports No Symptoms Reported
Respiratory: Reports No Symptoms
Cardiac: Reports No Symptoms
Abdomen/GI: Reports GERD and Other (NG tube in place); Denies Abdominal Pain, Nausea or Vomiting
Genitourinary: Reports No Symptoms
Musculoskeletal: Reports No Symptoms
Skin: Reports No Symptoms
Neuro: Reports No Symptoms
Endocrine: Reports No Symptoms
Hematologic / Lymphatic: Reports No Symptoms
Allergy / Immunology: Reports No Symptoms
Psych: Reports Anxious
Physical Exam
-
General: Well Developed, Well Nourished, Comfortable and Conversant
HEENT: Normocephalic and Atraumatic
Respiratory: Clear to Auscultation and Non Labored Respirations
Cardiac: Regular Rhythm and S1/S2
GI: Soft, Nontender, Nondistended and Other (NG tube in place, draining brown fluid)
Musculoskeletal: No Clubbing, No Cyanosis and No Edema
Skin: Warm and Dry
Neuro: Awake, Alert, Oriented, AO x 3, No Motor Deficits and No Sensory Deficits
Psych: Anxious
Data Reviewed
-
CT Scan: Report Reviewed by me, Discussed with Physician and Discussed with Patient
Labs: Labs Reviewed by me, Discussed with Physician and Discussed with Patient
[2025-07-19 09:40] LABS: Hematocrit 44.2 % (39.0-52.0); Hemoglobin 15.3 g/dL (13.0-18.0); Mean Corp Hgb Conc. 34.6 g/dL (33.0-37.0); Mean Corpuscular Volume 87.9 fL (80.0-94.0); Nucleated Red Blood Cells % 0 % (-); Platelet Count 297 10^3/uL (130-400); Red Cell Dist. Width 13.2 % (11.5-14.5)
[2025-07-19] MEDS: VALIUM INJECTION 2 MG IV ×2 (09:47→21:43)
[2025-07-19 10:10] LABS: ALT (SGPT) 15 U/L (0-50); AST (SGOT) 19 U/L (17-59); Albumin 3.2 g/dl (3.5-5.0); Alkaline Phosphatase 57 U/L (38-126); Blood Urea Nitrogen 13 mg/dl (9-20); Calcium 9.0 mg/dl (8.4-10.2); Carbon Dioxide 27 mmol/L (22-30); Chloride 106 mmol/L (98-107); Estimated Creatinine Clearance 97 ml/min; Glucose 145 mg/dl (70-99); Potassium 4.3 mmol/L (3.5-5.1); Sodium 135 mmol/L (135-145); Total Protein 5.9 g/dl (6.3-8.2); eGFR > 60.00
--- NOTE | 2025-07-19 11:04 | CM ---
CM reviewed chart, patient seen bedside with , initial assessment completed.
Patient is a 59-year-old male past medical history of polycystic liver/kidney disease, [facility], prior small bowel obstruction, anxiety/depression, prediabetes, hyperlipidemia, presenting with intractable nausea
and vomiting, hiccups, abdominal pain starting last night.
Patient resides with in a split level home, one step to enter. Patient denies use of DME, VN/SNF hx, is independent with all ADLS/IADLS. PCP confirmed Hank Gómez, Pharmacy [facility], confirms prescription coverage. Patient currently
with NGT. Surgical eval placed. CM will continue to follow for all discharge planning needs.
Plan; home with when stable
--- NOTE | 2025-07-19 11:43 | W.PN.GI.CBS2 ---
Today's Communication / Plan
-
error
Assessment / Plan
-
Pt is a 59yo with hx hypercholesterolemia, pre DM, anxiety/depression, polycystic liver disease, retroperitoneal lymphangiomatosis, melanoma, tobacco abuse, daily Marijuana use, b/l ocular HTN, meningitis, glaucoma and newly diagnosed crohns
disease. Pt has history of colonoscopy in 2014 with TI erosions, PSBO in 2021 and 2022 with possible gastroenteritis then presented in January with recurrent abdominal pain with nausea and vomiting with SB thickening and concern for crohns disease.
He had follow up with Dr. Owen in February and completed EGD, colonoscopy and MRE with continued concern for crohns disease. Pt was started on Skyrizi on 06/19 and went for second dose 07/17/25. He called on office 07/18 with concern for vomiting,
hiccups and abdominal pain and directed to ER. On admission noted with CT concern for distal SBO likely secondary to stricture. NGT was placed and IV steroids given on admission. 06/10 CRP 44, ESR 41, fecal radha 5690. In review with patient he
did not recall any concern for IBD in 2014 with colonoscopy. He then began with obstruction then crohns diagnosis as above. He admits to recent anxiety and depression issues with tapia of medication with Lexapro and diarrhea several months ago.
He began about 10 days prior to admission with vomiting after crab imperial. Symptoms then resolved and he the started again with vomiting on 07/19 in the AM and symptoms progressed with increased pain leading to admission. Pt otherwise admits to
GERD which is new with nausea/vomiting initially small volume dark brown emesis then large volume up to 1600ml recorded after NGT placement with continued drainage. He admits to improved abdominal pain, and admits to diarrhea several months ago and
occasional constipation. + 25 lbs wt loss over last few months. No blood or black in stools. On admission WBC 18,200, glucose 138 with otherwise stable labs. Denies NSAID use.
07/18/25 CT Abd/Pel (IV only)-DH only
1. Distal small bowel obstruction with transition point in the low anterior pelvis likely secondary to stricture.
2. Scattered areas of bowel wall thickening in keeping with inflammatory bowel disease
05/23/25- MRE Multiple regions of abnormal wall thickening and enhancement of the small bowel, including the distal ileum. Findings very likely represent Crohn's disease with skip areas of small bowel involvement.
No evidence for significant bowel obstruction at this time.Hepatomegaly with innumerable hepatic cysts. Cholelithiasis. No evidence for biliary ductal dilation.
04/28/25- colonoscopy 2- 4-6 mm polyp TC- TA , 1 -6 mm TA polyp CA, 1 - 6 mm polyp DC - HP, few ulcer TI c/w crohns disease - bx focal acute mucosal ulceration, with chronic active ileitis glandular crypt distortion
04/28/25- EGD normal esophagus, small HH normal duodenum SB bx neg
-distal SBO with concern for crohn's related inflammatory vs stricture
-hx crohn's disease with newly started Skyrizi
-polycystic liver disease
-leukocytosis
-mild elevated FBS with hx pre DM
-anxiety/depression with diarrhea with Lexapro
other med problems:
hypercholesterolemia, pre DM, anxiety/depression, polycystic liver disease, retroperitoneal lymphangiomatosis, melanoma, b/l ocular HTN, meningitis, glaucoma
PLAN:
etiology of symptoms with concern for SBO related to crohns inflammatory vs stricture
pt feeling better with NGT decompression overnight
cont NPO
NGT decompression-- monitor output and stool function
for surgical eval-- discussed risk of stricturing/rupture
PPI added today will continue daily
IV steroids given on admission will continue Methylprednisone 20mg Q 8 hours
OP Skyrizi 2nd dose given 07/17
antiemetics as needed
cont SQ heparin as high risk for DVT with active IBD
monitor FBS per medical team with adding steroids
support given
Subjective
Subjective
Date of Service: July 19, 2025
Objective
Data Reviewed
Laboratory Data:
Laboratory Results
07/19/25 09:09
07/19/25 09:09
Laboratory Results
Total Bilirubin 0.6 mg/dl (0.2-1.3) 07/19/25 09:09
AST 19 U/L (17-59) 07/19/25 09:09
ALT 15 U/L (0-50) 07/19/25 09:09
Alkaline Phosphatase 57 U/L (38-126) 07/19/25 09:09
Lipase 188 U/L (23-300) 07/18/25 17:47
Vital Signs and I&O:
Vital Signs
Temp Pulse Resp BP Pulse Ox
98.4 F 81 16 162/91 95
07/19/25 07:00 07/19/25 07:00 07/19/25 07:00 07/19/25 07:00 07/19/25 07:00
I&O
07/18/25 07/19/25 07/20/25
06:59 06:59 06:59
Intake Total 1770 / 1770
Output Total 2400 / 2400
Balance -630 / -630
[2025-07-19 11:55] LABS: Glucose - Point of Care 137 mg/dl (70-99)
--- NOTE | 2025-07-19 12:37 | CON.CRS ---
Consultation
-
Date/Time Consultation Requested: 07/18/2025, 22:47
Date/Time Consultation Performed: 07/19/2025, 08:45
Requesting Provider: Christofer Gaytan MD
Performing Provider: Fabiano Mckinney MD
Reason for Consultation: SBO
Medical History
-
Chief Complaint: abdominal pain
History of Present Illness:
59-year-old male, with a past history of polycystic liver and kidney disease and recently diagnosed Crohn's disease on [facility] with prior small bowel obstruction, presents to the ER complaining of nausea vomiting, belching, and abdominal pain that
started yesterday. CT of the abdomen pelvis shows distal small bowel obstruction with transition point in the low anterior pelvis likely secondary to a structure. WBC 18.2 on admission and is 11.0 today he remains afebrile and his vitals have been
normal. An NG tube was placed which put out 1600 mL. His last colonoscopy was by Dr. Owen in March 2025 which showed multiple polyps. There were a few ulcers in the terminal ileum consistent with Crohn's. Giiven these findings, we have been
consulted for further surgical opinion.
Past Medical History
Past Medical History: Other (Hypercholesterolemia, NIDDM (pre DM), Psychiatric (anxiety/depression) and Other (polycystic liver disease, crohns disease, retroperitoneal lymphangiomatosis, melanoma, b/l ocular HTN, meningitis, glaucoma))
Past Surgical History: Other (Tonsilectomy, Urological (vasectomy))
Social History
Tobacco: Smoker
Alcohol: None
Drug: Marijuana
Living: With Family
Family History
Family History: Reviewed & Not Pertinent
Allergies / Home Medications
Allergy/AdvReac Type Severity Reaction Status Date / Time
No Known Allergies Allergy Verified 02/23/25 08:29
�Medication �Instructions �Recorded �Confirmed �Type
metformin 500 mg tablet 500 mg PO DAILY Diabetes 08/04/22 07/18/25 History
fluticasone propionate 50 1 spray intranasal DAILY Allergies 04/26/23 07/18/25 History
mcg/actuation nasal
spray,suspension (Flonase Allergy
Relief)
dicyclomine 10 mg capsule 10 mg PO BID PRN Stomach pain #20 02/23/25 07/18/25 Rx
caps
ondansetron 4 mg disintegrating 4 mg PO BIDPRN PRN nausea/vomiting 02/23/25 07/18/25 Rx
tablet #10 tabs
Lexapro 20 mg PO DAILY Mental 07/18/25 07/18/25 History
Health/Anxiety
Wellbutrin 1 tab PO DAILY Mental 07/18/25 07/18/25 History
Health/Anxiety
Review of Systems
-
History Source: Patient
Abdomen/GI: Abdominal Pain, Nausea and Vomiting
A 10 point review of systems was completed, and was negative except as per HPI.
Physical Exam
Vital Signs
Temp 98.4 F 07/19/25 07:00
Pulse 81 07/19/25 07:00
Resp Rate 16 07/19/25 07:00
Blood pressure 162/91 07/19/25 07:00
SaO2 95 07/19/25 07:00
07/18/25 07/19/25 07/20/25
06:59 06:59 06:59
Actual Weight 68.039 kg
Body Mass Index (BMI) 21.5
Lab Results / Allergies
07/19/25 09:09
07/19/25 09:09
WBC 11.0 10^3/uL (4.8-10.8) H 07/19/25 09:09
Hgb 15.3 g/dL (13.0-18.0) 07/19/25 09:09
Hct 44.2 % (39.0-52.0) 07/19/25 09:09
Plt Count 297 10^3/uL (130-400) 07/19/25 09:09
Abs Immat Gran (auto) 0.1 10^3/uL (0-0.05) H 07/19/25 09:09
Neutrophils % 89.2 % (42.2-75.2) H 07/19/25 09:09
Allergy/AdvReac Type Severity Reaction Status Date / Time
No Known Allergies Allergy Verified 02/23/25 08:29
Physical Exam
General: Well Developed, Well Nourished and No Apparent Distress
Skin: Warm and Dry
Neuro: AO x 3
Data Reviewed
-
CT Scan: Image Personally Visualized and interpreted, Report Reviewed by me and Discussed with Physician
Labs: Labs Reviewed by me, Discussed with Physician and Discussed with Patient
Old Records: Reviewed
Assessment / Plan
-
Assessment: 59-year-old male with a recent diagnosis of Crohn's disease on [facility] presents to [facility] with abdominal pain and nausea and vomiting, found to have a distal small bowel obstruction with transition point one anterior pelvis
Plan:
- Maintain NG tube
- Continue IV steroids per GI
- Heparin subcu for DVT prophylaxis
- N.p.o.
- Pain control
- No plans for surgery at this time, will follow
[2025-07-19 15:00] VITALS: BP 139/86
[2025-07-19 18:04] LABS: Glucose - Point of Care 128 mg/dl (70-99)
[2025-07-19 23:27] VITALS: BP 118/65
[2025-07-19 23:38] LABS: Glucose - Point of Care 118 mg/dl (70-99)
[2025-07-20] MEDS: NSS 1000 IV ×2 (04:48→17:33)
[2025-07-20 06:07] LABS: Glucose - Point of Care 128 mg/dl (70-99)
[2025-07-20 07:00] VITALS: BP 138/84
[2025-07-20 07:37] LABS: Blood Urea Nitrogen 18 mg/dl (9-20); Calcium 9.4 mg/dl (8.4-10.2); Carbon Dioxide 29 mmol/L (22-30); Chloride 105 mmol/L (98-107); Estimated Creatinine Clearance 86 ml/min; Glucose 134 mg/dl (70-99); Potassium 4.9 mmol/L (3.5-5.1); Sodium 137 mmol/L (135-145); eGFR > 60.00
[2025-07-20 07:42] LABS: C-Reactive Protein 19.80 mg/L (0.0-10.00)
--- NOTE | 2025-07-20 07:56 | W.PN.GI.CBS2 ---
Today's Communication / Plan
-
continue steroids
Assessment / Plan
-
Pt is a 59yo with hx hypercholesterolemia, pre DM, anxiety/depression, polycystic liver disease, retroperitoneal lymphangiomatosis, melanoma, tobacco abuse, daily Marijuana use, b/l ocular HTN, meningitis, glaucoma and newly diagnosed crohns
disease. Pt has history of colonoscopy in 2014 with TI erosions, PSBO in 2021 and 2022 with possible gastroenteritis then presented in January with recurrent abdominal pain with nausea and vomiting with SB thickening and concern for crohns disease.
He had follow up with Dr. Owen in February and completed EGD, colonoscopy and MRE with continued concern for crohns disease. Pt was started on Skyrizi on 06/19 and went for second dose 07/17/25. He called on office 07/18 with concern for vomiting,
hiccups and abdominal pain and directed to ER. On admission noted with CT concern for distal SBO likely secondary to stricture. NGT was placed and IV steroids given on admission. 06/10 CRP 44, ESR 41, fecal radha 5690. In review with patient he
did not recall any concern for IBD in 2014 with colonoscopy. He then began with obstruction then crohns diagnosis as above. He admits to recent anxiety and depression issues with tapia of medication with Lexapro and diarrhea several months ago.
He began about 10 days prior to admission with vomiting after crab imperial. Symptoms then resolved and he the started again with vomiting on 07/19 in the AM and symptoms progressed with increased pain leading to admission. Pt otherwise admits to
GERD which is new with nausea/vomiting initially small volume dark brown emesis then large volume up to 1600ml recorded after NGT placement with continued drainage. He admits to improved abdominal pain, and admits to diarrhea several months ago and
occasional constipation. + 25 lbs wt loss over last few months. No blood or black in stools. On admission WBC 18,200, glucose 138 with otherwise stable labs. Denies NSAID use.
07/18/25 CT Abd/Pel (IV only)-DH only
1. Distal small bowel obstruction with transition point in the low anterior pelvis likely secondary to stricture.
2. Scattered areas of bowel wall thickening in keeping with inflammatory bowel disease
05/23/25- MRE Multiple regions of abnormal wall thickening and enhancement of the small bowel, including the distal ileum. Findings very likely represent Crohn's disease with skip areas of small bowel involvement.
No evidence for significant bowel obstruction at this time.Hepatomegaly with innumerable hepatic cysts. Cholelithiasis. No evidence for biliary ductal dilation.
04/28/25- colonoscopy 2- 4-6 mm polyp TC- TA , 1 -6 mm TA polyp CA, 1 - 6 mm polyp DC - HP, few ulcer TI c/w crohns disease - bx focal acute mucosal ulceration, with chronic active ileitis glandular crypt distortion
04/28/25- EGD normal esophagus, small HH normal duodenum SB bx neg
-distal SBO with concern for crohn's related inflammatory vs stricture
-hx crohn's disease with newly started Skyrizi
-polycystic liver disease
-leukocytosis
-mild elevated FBS with hx pre DM
-anxiety/depression with diarrhea with Lexapro
other med problems:
hypercholesterolemia, pre DM, anxiety/depression, polycystic liver disease, retroperitoneal lymphangiomatosis, melanoma, b/l ocular HTN, meningitis, glaucoma
Plan:
clinically improving, await crp, sed rate
continue IV steroids
continue NPO
would continue NGT today hopefully out tomorrow
Subjective
Subjective
Date of Service: July 20, 2025
Pt passing gas, no abdominal pain, NGT draining
Objective
Data Reviewed
Laboratory Data:
Laboratory Results
07/19/25 09:09
07/20/25 06:25
Laboratory Results
Total Bilirubin 0.6 mg/dl (0.2-1.3) 07/19/25 09:09
AST 19 U/L (17-59) 07/19/25 09:09
ALT 15 U/L (0-50) 07/19/25 09:09
Alkaline Phosphatase 57 U/L (38-126) 07/19/25 09:09
Lipase 188 U/L (23-300) 07/18/25 17:47
Vital Signs and I&O:
Vital Signs
Temp Pulse Resp BP Pulse Ox
98.4 F 65 16 118/65 94
07/19/25 23:27 07/19/25 23:27 07/19/25 23:27 07/19/25 23:27 07/19/25 23:27
I&O
07/19/25 07/20/25 07/21/25
06:59 06:59 06:59
Intake Total 1770 / 1770 1250 / 1250
Output Total 2400 / 2400 2024
Balance -630 / -630 -775 / -775
Physical Exam
Physical Exam
HEENT: Anicteric
GI: Soft, Non Distended and Non Tender
Neuro: Non Focal
[2025-07-20] MEDS: SOLU-MEDROL PF 20 MG IV ×3 (08:33→23:37)
[2025-07-20] MEDS: NSS (PRESERVATIVE FREE) 10 ML IV (08:33)
[2025-07-20] MEDS: HEPARIN 5000 UNITS SC (08:33)
[2025-07-20] MEDS: PROTONIX IV 40 MG IV (08:33)
[2025-07-20] MEDS: VALIUM INJECTION 2 MG IV ×2 (08:48→23:36)
--- NOTE | 2025-07-20 08:56 | W.PN.HOSP.TC ---
Today's Communication/Plan
-
Continue NG tube
Continue IV steroids
Continue monitoring for any worsening abdominal symptoms
Continue Valium as needed
Assessment / Plan
Assessment / Plan
Assessment:
59-year-old male with a past medical history of polycystic liver/kidney disease, Crohn's disease diagnosed this year and started on Skyrizi (received 2 doses), previous small bowel obstructions, anxiety/depression, prediabetes, hyperlipidemia
presented to the ED due to recent intractable nausea and vomiting along with abdominal pain that started the night before. He was sent in by GI due to concern for possible small bowel obstruction. He has not had any bowel movements however
continues to pass gases. He does not report any fever or sweating. In the ED, he underwent CT scan which showed distal small bowel stricture with transition point in the lower anterior pelvis likely secondary to stricture. NG tube was placed with
continues to drain brown fluid. General surgery was consulted, GI was consulted, patient continued to feel better following drainage of fluid from his NG tube.
Plan:
# Distal small bowel obstruction secondary to stricture likely from Crohn's disease
# Crohn's disease on Skyrizi
- Patient continues to be n.p.o., on NG tube which continues to drain brown fluid. Continue decompression with NG tube
- GI consulted, input appreciated
- General surgery consulted input appreciated
- No surgery indicated at this time
- Continue IV fluids, Zofran and Dilaudid as needed
- Patient started on Protonix due to gastric reflux, resolved his GERD like symptoms
- Continue IV steroids, methylprednisolone 20 mg every 8 hours
- Will continue to monitor blood sugar levels especially due to steroid therapy
- Skyrizi second dose was given on 07/17
# Prediabetes
- Continue to hold metformin
- Continue with insulin sliding scale, glucose monitoring
- Hemoglobin A1c pending
# Anxiety/depression
- Continue Lexapro and Wellbutrin once able to give medication orally
- Will give IV Valium as needed for increased anxiety until then
# History of prior small bowel obstruction
# Polycystic liver disease
Full code
DVT prophylaxis: Subcu heparin q 12
Anticipated Discharge: Within 24 hours
Subjective/Interval History
-
Date of Service: July 20, 2025
Patient seen this morning, was resting comfortably in his bed. Reported that he had no nausea or vomiting or any abdominal pain at this time. Overall continues to feel better however is worried that his NG tube continues to drain a lot of fluid.
Still a bit anxious but says that his anxiety has been controlled well with the Valium. Overall no complaints at this time. Said that his GERD symptoms have improved following Protonix.
Objective Data
-
Labs:
Laboratory Results
07/20/25
06:25
Sodium 137
Potassium 4.9
Chloride 105
Carbon Dioxide 29
BUN 18
Creatinine 0.9
Glucose 134 H
Calcium 9.4
Vital Signs:
Vital Signs
Temp Pulse Resp BP Pulse Ox
98.3 F 64 18 138/84 94
07/20/25 07:00 07/20/25 07:00 07/20/25 07:00 07/20/25 07:00 07/20/25 07:00
I&O
07/19/25 07/20/25 07/21/25
06:59 06:59 06:59
Intake Total 1770 / 1770 1250 / 1250
Output Total 2400 / 2400 2024
Balance -630 / -630 -775 / -775
Review of Systems
-
History Source: Patient
Constitutional: Reports No Symptoms
EENT: Reports No Symptoms Reported
Respiratory: Reports No Symptoms
Cardiac: Reports No Symptoms
Abdomen/GI: Reports Other (NG tube in place); Denies Abdominal Pain, Nausea or Vomiting
Genitourinary: Reports No Symptoms
Musculoskeletal: Reports No Symptoms
Skin: Reports No Symptoms
Neuro: Reports No Symptoms
Endocrine: Reports No Symptoms
Hematologic / Lymphatic: Reports No Symptoms
Allergy / Immunology: Reports No Symptoms
Psych: Reports Anxious
Physical Exam
-
General: Well Developed, Well Nourished, Comfortable and Conversant
HEENT: Normocephalic, Atraumatic and Other (NG tube in place continuing to drain brownish fluid)
Respiratory: Clear to Auscultation and Non Labored Respirations
Cardiac: Regular Rhythm and S1/S2
GI: Soft, Nontender, Nondistended and Other (NG tube in place, draining brown fluid)
Genito-urinary: No Costovertebral Tender
Musculoskeletal: No Clubbing, No Cyanosis and No Edema
Skin: Warm and Dry
Neuro: Awake, Alert, Oriented, AO x 3, No Motor Deficits and No Sensory Deficits
Psych: Anxious
Data Reviewed
-
Labs: Labs Reviewed by me, Discussed with Physician and Discussed with Patient
[2025-07-20 10:42] VITALS: BMI 21.5
[2025-07-20 11:15] LABS: Glycohemoglobin (HgbA1c) 5.6 % (4.0-5.6)
--- NOTE | 2025-07-20 11:25 | W.PN.CRS1 ---
Today's Communication / Plan
-
maintain ngt
steroids
Assessment/Plan
-
Assessment: 59-year-old male with a recent diagnosis of Crohn's disease on [facility] and nausea and vomiting, found to have a distal small bowel obstruction with transition point one anterior pelvis
CRP: 19.0
Plan:
- Maintain NG tube today. Chance of NGT clamping trial tomorrow if still passing flatus.
- Trend CRP
- Continue IV steroids per GI - 20mg q8
- Lovenox for DVT prophylaxis
- N.p.o.
- Pain control
- No plans for surgery at this time, will follow
- Discussed plan with patient and
Subjective Data
Subjective Data
Date of Service: July 20, 2025
Patient states he is about the same. He has flatus but no bowel movements. Denies cramping. He is hungry.
Objective Data
-
Vital Signs
Temp Pulse Resp BP Pulse Ox
98.3 F 64 18 138/84 94
07/20/25 07:00 07/20/25 07:00 07/20/25 07:00 07/20/25 07:00 07/20/25 07:00
Intake & Output
07/19/25 07/20/25 07/21/25
06:59 06:59 06:59
Intake Total 1770 / 1770 1250 / 1250
Output Total 2400 / 2400 2024 200 / 200
Balance -630 / -630 -775 / -775 -200 / -200
Intake:
IV fluids (Total) 1600 / 1600 1100 / 1100
nss 1000 / 1000
Amount instilled into GI Tube ( 170 / 170 150 / 150
Total)
[place] Sump 60 / 60 150 / 150
Output:
Gastrointestinal tube output ( 1600 / 1600 575 / 575
Total)
[place] Sump 200 / 200 575 / 575
Urine, Voided 800 / 800 1450 / 1450 200 / 200
Other:
Number of approximated MODERATE 1
amounts of urine
Lab Results
07/19/25 09:09
07/20/25 06:25
Physical Exam
-
General: No Acute Distress and AOx3
Abdomen: Soft, Non Distended and Non Tender
Skin: Warm and Dry
[2025-07-20 11:56] LABS: Glucose - Point of Care 112 mg/dl (70-99)
--- NOTE | 2025-07-20 14:01 | CM ---
CM reviewed chart, care ongoing.
Per Colorectal Surgery- consider clamping trial NGT tomorrow 07/21.
Remains on IV steroids.
CM will continue to follow for all d/c planning.
Plan; home no needs when stable
[2025-07-20 15:51] VITALS: BP 146/84
[2025-07-20] MEDS: LOVENOX 40 MG SC (17:35)
[2025-07-20 18:24] LABS: Glucose - Point of Care 107 mg/dl (70-99)
[2025-07-20 23:35] VITALS: BP 136/83
[2025-07-20] MEDS: FLUSH (NSS) 1 FLUSH IV (23:37)
[2025-07-20 23:45] LABS: Glucose - Point of Care 114 mg/dl (70-99)
[2025-07-21] MEDS: NSS 1000 IV ×3 (03:31→23:35)
[2025-07-21 06:07] LABS: Glucose - Point of Care 119 mg/dl (70-99)
[2025-07-21 07:33] LABS: C-Reactive Protein 9.20 mg/L (0.0-10.00)
--- NOTE | 2025-07-21 07:50 | W.PN.HOSP.TC ---
Addendum entered and electronically signed by Milan Garg MD 07/21/25 22:03:
Attending Addendum-
I saw and evaluated the patient. I reviewed the resident�s note and agree with findings and plan as documented in the resident�s note. Sub: passing flatus no BMs. very pleasant. Denies NV abd pain fevers cills. Full 12 point ROS reviewed and
negative except as documented Exam: Vitals reviewed in chart GEN-NAd HEENT NG tube in place draining brown fluid heart RRR lungs claer abd soft NT ND pos BS LE no edema
Plan:
# Distal small bowel obstruction secondary to stricture likely from Crohn's disease
# Crohn's Flare- on Skyrizi as OP
- continue NPO, NG tube
- GI input appreciated
- General surgery input appreciated
- No surgery indicated at this time
- Continue IV fluids, Zofran and Dilaudid as needed
- Patient started on Protonix due to gastric reflux
- Continue methylprednisolone 20 mg every 8 hours
- Skyrizi second dose was given on 07/17
- undergoing NG clamp trial challenge-07/21- if passes can DC and start clears
# Prediabetes
- Continue to hold metformin
- Continue with insulin sliding scale, glucose monitoring while on steroids
# Anxiety/depression
- Lexapro and Wellbutrin on hold
- restart when taking PO
# History of prior small bowel obstruction
# Polycystic liver disease
Full code
DVT prophylaxis: Subcu heparin q 12
Time spent coordinating care, review of plan of care with resident, personally reviewed records in EMR, med rec, consults, notes, labs, radiology, d/w nursing � 51 mins
Original Note:
Today's Communication/Plan
-
Will resume home antidepressants pending trial of NG tube clamping
NG tube management as per GI and surgery
Continue NPO
Continue steroids, PPI
Continue to follow BMP
Assessment / Plan
Assessment / Plan
Assessment:
This is a 59 y/o male with pmhx of polycystic liver/kidney disease, Crohn�s disease diagnosed in 2024 (Currently on Skyrizi s/p 2nd dose), history of small bowel obstruction in 2021 and 2022, anxiety, depression, pre diabetes, polycystic liver
disease, hyperlipidemia who presented to the ED on 07/18/2025 with nausea, vomiting, hiccups and abdominal pain that began the night prior found to have distal small bowel structure with transition point in the lower anterior pelvis likely secondary
to stricture, scattered areas of bowel wall thickening consistent with inflammatory bowel disease on CT scan, now with NG tube placement
Plan:
# Distal small bowel obstruction secondary to stricture likely from Crohn's disease
# Crohn's disease on Skyrizi (2nd dose on 07/17)
- Patient continues to be n.p.o., on NG tube which continues to drain brown fluid. As per Surgery, plan for trial of clamping NG tube today.
- GI and General Surgery are following, appreciate their further insight into his case
- Continue IV fluids, Zofran and Dilaudid as needed, PPI
- Follow BMP to monitor electrolytes
- Pending results of NG tube clamp today, will restart Lexapro 20mg daily and Wellbutrin XR 150mg daily. If his NG tube cannot be removed, will crush the Lexapro and deliver it through the tube. If the NG tube is removed, he will resume both oral
medications.
- Continue IV steroids, methylprednisolone 20 mg every 8 hours
- Will monitor
# Prediabetes
- Continue to hold metformin
- Continue with insulin sliding scale, glucose monitoring
# Anxiety/depression
- Pending results of NG tube clamp today, will restart Lexapro 20mg daily and Wellbutrin XR 150mg daily. If his NG tube cannot be removed, will crush the Lexapro and deliver it through the tube. If the NG tube is removed, he will resume both oral
medications.
- Continue IV Valium as needed for increased anxiety until able to resume home medications
# History of prior small bowel obstruction
# Polycystic liver disease
Full code
DVT prophylaxis: Subcu heparin q 12
Anticipated Discharge: 24 - 48 hours
Subjective/Interval History
-
Date of Service: July 21, 2025
Today, he is doing well and is free of nausea, vomiting or hiccups. He expresses concern about not taking any of his oral medications since arriving at the hospital including Lexapro and Wellbutrin specifically. He is also interested in removal of
his NG tube as soon as it is safe to do so, and would like to avoid surgery if possible.
Objective Data
-
Labs:
Laboratory Results
07/21/25
07:08
WBC Pending
Hgb Pending
Hct Pending
Plt Count Pending
Sodium Pending
Potassium Pending
Chloride Pending
Carbon Dioxide Pending
BUN Pending
Creatinine Pending
Glucose Pending
Calcium Pending
Vital Signs:
Vital Signs
Temp Pulse Resp BP Pulse Ox
98.2 F 59 18 136/83 94
07/20/25 23:35 07/20/25 23:35 07/20/25 23:35 07/20/25 23:35 07/20/25 23:35
I&O
07/20/25 07/21/25 07/22/25
06:59 06:59 06:59
Intake Total 1250 / 1250 2340 / 2340
Output Total 2024 2260 / 2260
Balance -775 / -775 80 / 80
Review of Systems
-
History Source: Patient
Constitutional: Denies Fever or Chills
Respiratory: Denies Cough or Trouble Breathing
Cardiac: Denies Chest Pain
Abdomen/GI: Denies Abdominal Pain, Nausea, Vomiting or Diarrhea
Physical Exam
-
General: Well Developed, Well Nourished, No Apparent Distress and Comfortable
HEENT: Normocephalic and Atraumatic
Respiratory: Clear to Auscultation
Cardiac: Regular Rhythm and S1/S2
GI: Soft, Nontender and Other (Hypoactive bowel sounds in the background of suction noise from NG tube)
Skin: Warm and Dry
Neuro: Awake, Alert and Oriented
Psych: Calm and Intact Judgement/Insight
[2025-07-21] MEDS: NSS (PRESERVATIVE FREE) 10 ML IV (08:05)
[2025-07-21] MEDS: SOLU-MEDROL PF 20 MG IV ×3 (08:05→23:35)
[2025-07-21] MEDS: PROTONIX IV 40 MG IV (08:05)
[2025-07-21 08:21] VITALS: BP 149/84
--- NOTE | 2025-07-21 09:06 | W.PN.CRS1 ---
Today's Communication / Plan
-
As below
Assessment/Plan
-
59-year-old female with PMH of HLD, polycystic liver, prediabetes, Crohn's (recently diagnosed, last colonoscopy 04/28/[address] Owen, showing ulcers in the TI, biopsies showing active chronic ileitis with crypt distortion, transverse TA,
ascending TA and descending HP; MRE on 05/23 showing multiple regions of abnormal wall thickening of small bowel, including the distal ileum, likely representing Crohn's disease with skip areas, no obstruction; he was started on Skyrizi and has
received 2 doses so far�06/19, 07/17); prior SBO in 2021 and 2022 managed nonoperatively (no history of abdominal surgery) who presented with N/V and abdominal pain. WBC 18.1, CRP 19.8, and CTAP showing distal SBO with TTP in the lower anterior
pelvis likely secondary to stricture, other scattered areas of bowel wall thickening. An NGT was placed and IV steroids were started
AFVSS
CBC today pending, CRP 9.2
� Crohn's flare causing SBO, possible strictured segment, but with elevated CRP, likely component inflammation; not completely obstructed
�Agree with continue nonoperative measures; discussed the possible treatment options, including nonoperative and operative treatments; hopefully, he can resolve this flare with steroids alone and continue the induction of Skyrizi; explained that
there is likely a component of fibrotic stricture, but would avoid surgery if this is not clinically symptomatic after resolution of this acute flare; explained the risk of nonoperative measures, including failure and needing surgery this admission
�Appreciate GI; continue Solu-Medrol 20 mg every 8
�Will clamp NGT for 6 hours; if remains asymptomatic and output less than 150 mL, will remove and start clears
�Pain control; continue Dilaudid as needed; would encourage adding Tylenol and Toradol [id number] to decrease narcotic requirement; high risk of opioid over�use in IBD patients
�Continue DVT PPx with Lovenox
� Will send nutrition labs for tomorrow
� Encourage IS/OB
� Appreciate hospital
Subjective Data
Subjective Data
Date of Service: July 21, 2025
No overnight events.
Pain significantly improved
Denies nausea/vomiting. Still with NGT
+flatus -BMs +voiding
Objective Data
-
Vital Signs
Temp Pulse Resp BP Pulse Ox
98 F 54 18 149/84 97
07/21/25 08:21 07/21/25 08:21 07/21/25 08:21 07/21/25 08:21 07/21/25 08:21
Intake & Output
07/20/25 07/21/25 07/22/25
06:59 06:59 06:59
Intake Total 1250 / 1250 2340 / 2340
Output Total 2024 / 2024 2260 / 2260
Balance -775 / -775 80 / 80
Intake:
Oral fluids 0 / 0
IV fluids (Total) 1100 / 1100 2100 / 2100
Amount instilled into GI Tube ( 150 / 150 240 / 240
Total)
[place] Sump 150 / 150 240 / 240
Output:
Gastrointestinal tube output ( 575 / 575 1110 / 1110
Total)
[place] Sump 575 / 575 1110 / 1110
Urine, Voided 1450 / 1450 1150 / 1150
Other:
Number of approximated MODERATE 1
amounts of urine
Physical Exam
-
General: No Acute Distress and AOx3
HEENT: Grossly Normal
Abdomen: Soft, Non Distended, Non Tender, No Guarding, No Rebound and Other (NGT-1.1 L over 24 hours, dark black/brown foamy output, nonbilious)
Skin: Warm and Dry
--- NOTE | 2025-07-21 09:42 | W.PN.GI.CBS2 ---
Addendum entered and electronically signed by Gregoria Coley MD 07/21/25 16:10:
I saw and examined the patient.
The REGIONAL TRANSPORTATION MANAGER or PA's note was reviewed and I agree with the note.
Comment:
Pt is 5 hours into his NGT clamp challenge and feeling well. no abd pain or vomiting
abd: soft, nontender
impression
crohns flare
psbo
plan
if passes NGT clamp challenge can remove and give clears
if fails will continue NGT
continue steroids
Original Note:
Today's Communication / Plan
-
still with output from NGT 610 overnight and 250ml since 6 am
I sent message to review with surgical team prior to clamp
CRP 19.8-- 9.2, ESR 11, fecal radha recent OP 5690 in May
continue IV steroids
continue NPO
appreciate surgical input
support given to patient
Assessment / Plan
-
Pt is a 59yo with hx hypercholesterolemia, pre DM, anxiety/depression, polycystic liver disease, retroperitoneal lymphangiomatosis, melanoma, tobacco abuse, daily Marijuana use, b/l ocular HTN, meningitis, glaucoma and newly diagnosed crohns
disease. Pt has history of colonoscopy in 2014 with TI erosions, PSBO in 2021 and 2022 with possible gastroenteritis then presented in January with recurrent abdominal pain with nausea and vomiting with SB thickening and concern for crohns disease.
He had follow up with Dr. Owen in February and completed EGD, colonoscopy and MRE with continued concern for crohns disease. Pt was started on Skyrizi on 06/19 and went for second dose 07/17/25. He called on office 07/18 with concern for vomiting,
hiccups and abdominal pain and directed to ER. On admission noted with CT concern for distal SBO likely secondary to stricture. NGT was placed and IV steroids given on admission. 06/10 CRP 44, ESR 41, fecal radha 5690. In review with patient he
did not recall any concern for IBD in 2014 with colonoscopy. He then began with obstruction then crohns diagnosis as above. He admits to recent anxiety and depression issues with tapia of medication with Lexapro and diarrhea several months ago.
He began about 10 days prior to admission with vomiting after crab imperial. Symptoms then resolved and he the started again with vomiting on 07/19 in the AM and symptoms progressed with increased pain leading to admission. Pt otherwise admits to
GERD which is new with nausea/vomiting initially small volume dark brown emesis then large volume up to 1600ml recorded after NGT placement with continued drainage. He admits to improved abdominal pain, and admits to diarrhea several months ago and
occasional constipation. + 25 lbs wt loss over last few months. No blood or black in stools. On admission WBC 18,200, glucose 138 with otherwise stable labs. Denies NSAID use.
07/18/25 CT Abd/Pel (IV only)-DH only
1. Distal small bowel obstruction with transition point in the low anterior pelvis likely secondary to stricture.
2. Scattered areas of bowel wall thickening in keeping with inflammatory bowel disease
05/23/25- MRE Multiple regions of abnormal wall thickening and enhancement of the small bowel, including the distal ileum. Findings very likely represent Crohn's disease with skip areas of small bowel involvement.
No evidence for significant bowel obstruction at this time.Hepatomegaly with innumerable hepatic cysts. Cholelithiasis. No evidence for biliary ductal dilation.
04/28/25- colonoscopy 2- 4-6 mm polyp TC- TA , 1 -6 mm TA polyp CA, 1 - 6 mm polyp DC - HP, few ulcer TI c/w crohns disease - bx focal acute mucosal ulceration, with chronic active ileitis glandular crypt distortion
04/28/25- EGD normal esophagus, small HH normal duodenum SB bx neg
-distal SBO with concern for crohn's related inflammatory vs stricture
-hx crohn's disease with newly started Skyrizi
-polycystic liver disease
-leukocytosis
-mild elevated FBS with hx pre DM
-anxiety/depression with diarrhea with Lexapro
other med problems:
hypercholesterolemia, pre DM, anxiety/depression, polycystic liver disease, retroperitoneal lymphangiomatosis, melanoma, b/l ocular HTN, meningitis, glaucoma
Plan:
still with output from NGT 610 overnight and 250ml since 6 am
I sent message to review with surgical team prior to clamp
CRP 19.8-- 9.2, ESR 11, fecal radha recent OP 5690 in May
continue IV steroids
continue NPO
appreciate surgical input
support given to patient
Subjective
Subjective
Date of Service: July 21, 2025
still with output from NGT 610 overnight and 250ml since 6am -- remains NPO
Objective
Data Reviewed
Laboratory Data:
Laboratory Results
Total Bilirubin 0.6 mg/dl (0.2-1.3) 07/19/25 09:09
AST 19 U/L (17-59) 07/19/25 09:09
ALT 15 U/L (0-50) 07/19/25 09:09
Alkaline Phosphatase 57 U/L (38-126) 07/19/25 09:09
Lipase 188 U/L (23-300) 07/18/25 17:47
Vital Signs and I&O:
Vital Signs
Temp Pulse Resp BP Pulse Ox
98 F 54 18 149/84 97
07/21/25 08:21 07/21/25 08:21 07/21/25 08:21 07/21/25 08:21 07/21/25 08:21
I&O
07/20/25 07/21/25 07/22/25
06:59 06:59 06:59
Intake Total 1250 / 1250 2340 / 2340
Output Total 2024 2260 / 2260
Balance -775 / -775 80 / 80
Physical Exam
Physical Exam
HEENT: Anicteric and Moist mucous membranes
Cardiology: Normal Sinus Rhythm
Pulmonary: Clear
GI: Soft, Non Distended, Non Tender and Other (NGT with feculent brown output )
Extremities: No Edema
Neuro: Non Focal
--- NOTE | 2025-07-21 10:11 | CM ---
Patient seen at bedside
per note GI - still with output from NGT 610 overnight and 250ml since 6 am
I sent message to review with surgical team prior to clamp
cont npo
CM to continue to follow for all d/c planning
Plan: home, no needs anticipated, when stable
[2025-07-21 10:12] LABS: Hematocrit 43.3 % (39.0-52.0); Hemoglobin 14.6 g/dL (13.0-18.0); Mean Corp Hgb Conc. 33.7 g/dL (33.0-37.0); Mean Corpuscular Volume 87.8 fL (80.0-94.0); Platelet Count 292 10^3/uL (130-400); Red Cell Dist. Width 13.2 % (11.5-14.5)
--- NOTE | 2025-07-21 10:38 | PTCARENOTE ---
NG Tube clamped at 1030
[2025-07-21 11:08] LABS: Blood Urea Nitrogen 23 mg/dl (9-20); Calcium 8.8 mg/dl (8.4-10.2); Carbon Dioxide 26 mmol/L (22-30); Chloride 108 mmol/L (98-107); Estimated Creatinine Clearance 86 ml/min; Glucose 130 mg/dl (70-99); Potassium 4.5 mmol/L (3.5-5.1); Sodium 137 mmol/L (135-145); eGFR > 60.00
[2025-07-21 12:14] LABS: Glucose - Point of Care 111 mg/dl (70-99)
[2025-07-21 15:51] VITALS: BP 158/81
--- NOTE | 2025-07-21 16:33 | PTCARENOTE ---
The NG tube was unclamped at this time. The NG tube was flushed with NS 30ml. waiting on residual per order.
[2025-07-21 17:55] LABS: Glucose - Point of Care 103 mg/dl (70-99)
[2025-07-21] MEDS: LOVENOX 40 MG SC (17:59)
[2025-07-21 23:00] VITALS: BP 148/81
[2025-07-21 23:30] LABS: Glucose - Point of Care 111 mg/dl (70-99)
[2025-07-21] MEDS: VALIUM INJECTION 2 MG IV (23:36)
[2025-07-22 05:56] LABS: Glucose - Point of Care 118 mg/dl (70-99)
--- NOTE | 2025-07-22 06:24 | PTCARENOTE ---
Pt aaox 3 able to make his needs known.Denies pain or any discomfort,resting comfortably. IV fluids continued as ordered.Plan of care continued on pt.
--- NOTE | 2025-07-22 06:58 | W.PN.HOSP.TC ---
Addendum entered and electronically signed by Milan Garg MD 07/22/25 21:24:
Attending Addendum-
I saw and evaluated the patient. I reviewed the resident�s note and agree with findings and plan as documented in the resident�s note. Sub: passing flatus had small BM. very pleasant. tolerating cleras. Denies NV abd pain fevers chills. Full 12
point ROS reviewed and negative except as documented Exam: Vitals reviewed in chart GEN-NAD heart RRR lungs clear abd soft NT ND pos BS LE no edema
Plan:
# Partial Distal small bowel obstruction secondary to stricture likely from Crohn's disease
# Crohn's Flare- on Skyrizi as OP
- DC NG tube 07/21
- clears to LR diet this PM if marga
- GI input appreciated
- General surgery input appreciated
- No surgery indicated
- cont Protonix
- Continue methylprednisolone 20 mg every 8 hours-> po prednisone on DC tapering to 10mg daily
- Skyrizi second dose was given on 07/17
# Prediabetes
- Continue to hold metformin
- Continue with insulin sliding scale, glucose monitoring while on steroids
# Anxiety/depression
- Lexapro and Wellbutrin restarted
# History of prior small bowel obstruction
# Polycystic liver disease
Full code
DVT prophylaxis: Subcu heparin q 12
Dispo DC home in am
Time spent coordinating care, review of plan of care with resident, personally reviewed records in EMR, med rec, consults, notes, labs, radiology, d/w nursing � 52 mins
Original Note:
Today's Communication/Plan
-
NG tube removed, now on clear diet
Will plan to advance diet as tolerated as early as this evening
Assessment / Plan
Assessment / Plan
Assessment:
This is a 59 y/o male with pmhx of polycystic liver/kidney disease, Crohn�s disease diagnosed in 2024 (Currently on Skyrizi s/p 2nd dose), history of small bowel obstruction in 2021 and 2022, anxiety, depression, pre diabetes, polycystic liver
disease, hyperlipidemia who presented to the ED on 07/18/2025 with nausea, vomiting, hiccups and abdominal pain that began the night prior found to have distal small bowel structure with transition point in the lower anterior pelvis likely secondary
to stricture, scattered areas of bowel wall thickening consistent with inflammatory bowel disease on CT scan, now with NG tube placement
Plan:
# Distal Partial small bowel obstruction secondary to stricture likely from Crohn's disease
# Crohn's disease on Skyeseniaizi (2nd dose on 07/17)
- Patient successfully completed NG tube clamping trial yesterday with removal of tube around 7:30PM yesterday.
- Advanced diet to clears. Will continue to advance diet as tolerated after he has had at least breakfast and lunch with clears. Plan to advance diet to full liquids this evening and low residue tomorrow if tolerated
- GI and General Surgery are following, appreciate their further insight into his case
- Continue IV fluids, Zofran and Dilaudid as needed, PPI. Will transition PPI to oral now that NG tube is removed.
- Follow BMP to monitor electrolytes
- Continue IV steroids, methylprednisolone 20 mg every 8 hours
- Will monitor
# Prediabetes
- Continue to hold metformin
- Continue with insulin sliding scale, glucose monitoring
# Anxiety/depression
- Restarted Lexapro 20mg daily and Wellbutrin XR 150mg daily now that NG tube is removed
- Will stop IV Valium
# History of prior small bowel obstruction
# Polycystic liver disease
Full code
DVT prophylaxis: Subcu heparin q 12
Anticipated Discharge: 24 - 48 hours
Subjective/Interval History
-
Date of Service: July 22, 2025
Patient was doing well today when I arrived. He reports his NG tube was removed around 7:30PM yesterday, and he has continued to pass gas since then. He has not yet had a bowel movement but 'feels close'. He remains free from abdominal pain, nausea
or vomiting.
Objective Data
-
Labs:
Laboratory Results
07/22/25
06:37
WBC Pending
Hgb Pending
Hct Pending
Plt Count Pending
Sodium Pending
Potassium Pending
Chloride Pending
Carbon Dioxide Pending
BUN Pending
Creatinine Pending
Glucose Pending
Calcium Pending
Total Bilirubin Pending
AST Pending
ALT Pending
Alkaline Phosphatase Pending
Vital Signs:
Vital Signs
Temp Pulse Resp BP Pulse Ox
98.7 F 54 16 148/81 95
07/21/25 23:00 07/21/25 23:00 07/21/25 23:00 07/21/25 23:00 07/21/25 23:00
I&O
07/20/25 07/21/25 07/22/25
06:59 06:59 06:59
Intake Total 1250 / 1250 2340 / 2340 30 / 30
Output Total 2024 / 2024 2260 / 2260 650 / 650
Balance -775 / -775 80 / 80 -620 / -620
Review of Systems
-
History Source: Patient
Constitutional: Denies Fever or Chills
Respiratory: Denies Cough
Cardiac: Denies Chest Pain
Abdomen/GI: Denies Abdominal Pain, Nausea, Vomiting, Diarrhea, Constipated or Bloated
Physical Exam
-
General: Well Developed, Well Nourished, No Apparent Distress and Comfortable
HEENT: Normocephalic and Atraumatic
Respiratory: Clear to Auscultation
Cardiac: Regular Rhythm and S1/S2
GI: Soft, Nontender and Normal Bowel Sounds
Skin: Warm and Dry
Neuro: Awake, Alert and Oriented
Psych: Calm and Intact Judgement/Insight
[2025-07-22 07:25] VITALS: BP 138/79
[2025-07-22] MEDS: LEXAPRO 20 MG PO (08:14)
[2025-07-22] MEDS: SOLU-MEDROL PF 20 MG IV ×3 (08:14→23:25)
[2025-07-22] MEDS: WELLBUTRIN XL (24 hour extended release) 150 MG PO (08:14)
[2025-07-22] MEDS: NSS (PRESERVATIVE FREE) 10 ML IV (08:15)
[2025-07-22] MEDS: PROTONIX IV 40 MG IV (08:15)
--- NOTE | 2025-07-22 08:35 | W.PN.CRS1 ---
Today's Communication / Plan
-
Potential for fulls later.
Assessment/Plan
-
Crohns with PSBO.
1. NGT out with flatus and feels well. On clears. Fulls for dinner if doing well.
2. continue medical measures/steroids per GI.
Subjective Data
Subjective Data
Date of Service: July 22, 2025
NGT out since yesterday.
On clears.
No nausea.
Flatus. No BMs.
Denies pain.
Objective Data
-
Vital Signs
Temp Pulse Resp BP Pulse Ox
98.4 F 47 16 138/79 96
07/22/25 07:25 07/22/25 07:25 07/22/25 07:25 07/22/25 07:25 07/22/25 07:25
Intake & Output
07/21/25 07/22/25 07/23/25
06:59 06:59 06:59
Intake Total 2340 / 2340 30 / 30
Output Total 2260 / 2260 650 / 650
Balance 80 / 80 -620 / -620
Intake:
Oral fluids 0 / 0
IV fluids (Total) 2100 / 2100
Amount instilled into GI Tube ( 240 / 240 30 / 30
Total)
[place] Sump 240 / 240 30 / 30
Output:
Gastrointestinal tube output ( 1110 / 1110 350 / 350
Total)
[place] Sump 1110 / 1110 350 / 350
Urine, Voided 1150 / 1150 300 / 300
Other:
Number of approximated MODERATE 1 1
amounts of urine
Physical Exam
-
General: No Acute Distress
Chest: Clear
Cardiovascular: Regular Rate & Rhythm
Abdomen: Soft, Non Distended and Non Tender
[2025-07-22 08:44] LABS: Hematocrit 43.1 % (39.0-52.0); Hemoglobin 14.6 g/dL (13.0-18.0); Mean Corp Hgb Conc. 33.9 g/dL (33.0-37.0); Mean Corpuscular Volume 88.1 fL (80.0-94.0); Platelet Count 268 10^3/uL (130-400); Red Cell Dist. Width 13.1 % (11.5-14.5)
[2025-07-22 08:52] LABS: ALT (SGPT) 14 U/L (0-50); AST (SGOT) 21 U/L (17-59); Albumin 3.0 g/dl (3.5-5.0); Alkaline Phosphatase 49 U/L (38-126); Blood Urea Nitrogen 23 mg/dl (9-20); Calcium 8.8 mg/dl (8.4-10.2); Carbon Dioxide 26 mmol/L (22-30); Chloride 107 mmol/L (98-107); Estimated Creatinine Clearance 86 ml/min; Glucose 109 mg/dl (70-99); Potassium 4.4 mmol/L (3.5-5.1); Sodium 136 mmol/L (135-145); Total Protein 5.7 g/dl (6.3-8.2); eGFR > 60.00
[2025-07-22 08:54] LABS: C-Reactive Protein 7.30 mg/L (0.0-10.00)
[2025-07-22 08:58] LABS: Prealbumin (Transthyretin) 21.8 mg/dl (17.6-36.0)
--- NOTE | 2025-07-22 09:56 | CM ---
Chart reviewed and per physician notes patient's diet to advance home no needs when stable.
Plan; Home no needs.
--- NOTE | 2025-07-22 10:49 | PN.CDI ---
CDI
- -
CDI:
Physician Documentation Request
Admit Date: 07/18/25 20:54
Dear Doctor Evelyn and Dr. Garg,
Please review the following and provide your response in the progress notes.
Clinical Indicators:
PN, 07/21
# Distal small bowel obstruction secondary to stricture likely from Crohn's disease
# Crohn's disease on Charlee (2nd dose on 07/17)
Bautista, PN, 07/21
#� Crohn's flare causing SBO, possible strictured segment, but with elevated CRP,
#...likely component inflammation; not completely obstructed
Based on the above and your clinical assessment, please clarify the specificity of the small bowel obstruction:
Partial small bowel obstruction
Complete small bowel obstruction
Other(please specify)
Unable to Determine
Use of terms such as suspected, likely, concern for, or probable (associated with a specific diagnosis that is being evaluated, monitored, or treated as if it exists) are acceptable and can be coded in the inpatient setting, when documented at the
time of discharge.
Thank you,
Michelle Burk RN BSN CCDS
CDI Specialist
Please contact via tiger text
Please use your independent medical judgment in providing your response.
--- NOTE | 2025-07-22 11:35 | W.PN.GI.CBS2 ---
Addendum entered and electronically signed by Daphne Vitale Do, MD 07/22/25 15:38:
I saw and examined the patient.
The SENIOR CONSULTING MANAGER's note was reviewed and I agree with the note.
Comment: NGT removed. Patient tolerating CLD and passing flatus with scant stool. He is ambulating hallways. Abd pain down to 2 out of 10. Vitals stable exam well appearing NTTP. NABS. Labs reviewed
Recommendations
- C/w IV steroids anticipate upon d/c long taper pred 60mg x7 days then 50mg x7 days then down to 10mg daily
- To resume skyrizi infusion outpatient
- Discussed low residue diet for dinner as tolerates
Will follow with you. Anticipate possible d/c tomorrow if tolerating diet with already OP FU with Dr Owen for 08/12 set.
Original Note:
Today's Communication / Plan
-
Output 50ml after NGT tube clamp trial and NGT now out
cont clear diet advance as tolerated possible fulls later today per surgery
remain on IV steroid -- if tolerating diet will need to transition to PO
CRP 19.8-- 9.2-- 7.3 ESR 11, fecal radha recent OP 5690 in May
appreciate surgical input
support given to patient
OP follow up with Dr. Owen -- he is scheduled 08/12 for next Charlee and Dr. Owen follow up that day
Assessment / Plan
-
Pt is a 59yo with hx hypercholesterolemia, pre DM, anxiety/depression, polycystic liver disease, retroperitoneal lymphangiomatosis, melanoma, tobacco abuse, daily Marijuana use, b/l ocular HTN, meningitis, glaucoma and newly diagnosed crohns
disease. Pt has history of colonoscopy in 2014 with TI erosions, PSBO in 2021 and 2022 with possible gastroenteritis then presented in January with recurrent abdominal pain with nausea and vomiting with SB thickening and concern for crohns disease.
He had follow up with Dr. Owen in February and completed EGD, colonoscopy and MRE with continued concern for crohns disease. Pt was started on Skyrizi on 06/19 and went for second dose 07/17/25. He called on office 07/18 with concern for vomiting,
hiccups and abdominal pain and directed to ER. On admission noted with CT concern for distal SBO likely secondary to stricture. NGT was placed and IV steroids given on admission. 06/10 CRP 44, ESR 41, fecal radha 5690. In review with patient he
did not recall any concern for IBD in 2014 with colonoscopy. He then began with obstruction then crohns diagnosis as above. He admits to recent anxiety and depression issues with tapia of medication with Lexapro and diarrhea several months ago.
He began about 10 days prior to admission with vomiting after crab imperial. Symptoms then resolved and he the started again with vomiting on 07/19 in the AM and symptoms progressed with increased pain leading to admission. Pt otherwise admits to
GERD which is new with nausea/vomiting initially small volume dark brown emesis then large volume up to 1600ml recorded after NGT placement with continued drainage. He admits to improved abdominal pain, and admits to diarrhea several months ago and
occasional constipation. + 25 lbs wt loss over last few months. No blood or black in stools. On admission WBC 18,200, glucose 138 with otherwise stable labs. Denies NSAID use.
07/18/25 CT Abd/Pel (IV only)-DH only
1. Distal small bowel obstruction with transition point in the low anterior pelvis likely secondary to stricture.
2. Scattered areas of bowel wall thickening in keeping with inflammatory bowel disease
05/23/25- MRE Multiple regions of abnormal wall thickening and enhancement of the small bowel, including the distal ileum. Findings very likely represent Crohn's disease with skip areas of small bowel involvement.
No evidence for significant bowel obstruction at this time.Hepatomegaly with innumerable hepatic cysts. Cholelithiasis. No evidence for biliary ductal dilation.
04/28/25- colonoscopy 2- 4-6 mm polyp TC- TA , 1 -6 mm TA polyp CA, 1 - 6 mm polyp DC - HP, few ulcer TI c/w crohns disease - bx focal acute mucosal ulceration, with chronic active ileitis glandular crypt distortion
04/28/25- EGD normal esophagus, small HH normal duodenum SB bx neg
-distal SBO with concern for crohn's related inflammatory vs stricture
-hx crohn's disease with newly started Skyrizi
-polycystic liver disease
-leukocytosis
-mild elevated FBS with hx pre DM
-anxiety/depression with diarrhea with Lexapro
other med problems:
hypercholesterolemia, pre DM, anxiety/depression, polycystic liver disease, retroperitoneal lymphangiomatosis, melanoma, b/l ocular HTN, meningitis, glaucoma
Plan:
Output 50ml after NGT tube clamp trial and NGT now out
cont clear diet advance as tolerated possible fulls later today per surgery
remain on IV steroid -- if tolerating diet will need to transition to PO
CRP 19.8-- 9.2-- 7.3 ESR 11, fecal radha recent OP 5690 in May
appreciate surgical input
support given to patient
OP follow up with Dr. Owen -- he is scheduled 08/12 for next [facility]lee and Dr. Owen follow up that day
Subjective
Subjective
Date of Service: July 22, 2025
after clamp trial 50ml output with more clear yellow drainage-- NGT now out and ate several clear liquids and small liquid stool this am
Objective
Data Reviewed
Laboratory Data:
Laboratory Results
07/22/25 06:37
07/22/25 06:37
Laboratory Results
Total Bilirubin 0.9 mg/dl (0.2-1.3) 07/22/25 06:37
AST 21 U/L (17-59) 07/22/25 06:37
ALT 14 U/L (0-50) 07/22/25 06:37
Alkaline Phosphatase 49 U/L (38-126) 07/22/25 06:37
Lipase 188 U/L (23-300) 07/18/25 17:47
Vital Signs and I&O:
Vital Signs
Temp Pulse Resp BP Pulse Ox
98.4 F 47 16 138/79 96
07/22/25 07:25 07/22/25 07:25 07/22/25 07:25 07/22/25 07:25 07/22/25 08:10
I&O
07/21/25 07/22/25 07/23/25
06:59 06:59 06:59
Intake Total 2340 / 2340 30 / 30
Output Total 2260 / 2260 650 / 650
Balance 80 / 80 -620 / -620
Physical Exam
Physical Exam
HEENT: Anicteric and Moist mucous membranes
Cardiology: Normal Sinus Rhythm
Pulmonary: Clear
GI: Soft, Non Distended and Non Tender
Extremities: No Edema
Neuro: Non Focal
[2025-07-22 12:01] LABS: Glucose - Point of Care 91 mg/dl (70-99)
[2025-07-22 15:14] VITALS: BP 146/79
[2025-07-22 16:50] LABS: Glucose - Point of Care 105 mg/dl (70-99)
[2025-07-22] MEDS: LOVENOX SC (17:41)
[2025-07-22 21:42] LABS: Glucose - Point of Care 184 mg/dl (70-99)
[2025-07-22 23:11] VITALS: BP 135/67
[2025-07-22] MEDS: VALIUM INJECTION 2 MG IV (23:26)
[2025-07-23 05:38] LABS: Glucose - Point of Care 110 mg/dl (70-99)
--- NOTE | 2025-07-23 07:03 | W.PN.HOSP.TC ---
Addendum entered and electronically signed by Milan Garg MD 07/23/25 23:21:
Attending Addendum-
I saw and evaluated the patient. I reviewed the resident�s note and agree with findings and plan as documented in the resident�s note. Sub: passing flatus and BM. very pleasant. tolerating LRD. Wnats to go home. Denies NV abd pain fevers chills.
Full 12 point ROS reviewed and negative except as documented Exam: Vitals reviewed in chart GEN-NAD heart RRR lungs clear abd soft NT ND pos BS LE no edema
Plan:
# Partial Distal small bowel obstruction secondary to stricture likely from Crohn's disease
# Crohn's Flare- on Skyrizi as OP
- DC'd NG tube 07/21
- marga LRD
- GI input appreciated
- General surgery input appreciated
- No surgery indicated
- cont Protonix
- Continue methylprednisolone 20 mg every 8 hours-> po prednisone on DC tapering to 10mg daily
- Skyrizi second dose was given on 07/17
# Prediabetes
- Continue to hold metformin
- Continue with insulin sliding scale, glucose monitoring while on steroids
# Anxiety/depression
- Lexapro and Wellbutrin restarted
# History of prior small bowel obstruction
# Polycystic liver disease
Full code
DVT prophylaxis: Subcu heparin q 12
Dispo DC home
Time spent coordinating care, DC planning, review of DC plan of care with resident, transition of care, review of records, med rec/scripts sent electronically, consults, notes, d/w consultants, nursing, and CM� 31 mins >50% of this time was devoted
to counseling and coordination of care
Original Note:
Today's Communication/Plan
-
Discharge planning today
Assessment / Plan
Assessment / Plan
Assessment:
This is a 59 y/o male with pmhx of polycystic liver/kidney disease, Crohn�s disease diagnosed in 2024 (Currently on Skyrizi s/p 2nd dose), history of small bowel obstruction in 2021 and 2022, anxiety, depression, pre diabetes, polycystic liver
disease, hyperlipidemia who presented to the ED on 07/18/2025 with nausea, vomiting, hiccups and abdominal pain that began the night prior found to have distal small bowel structure with transition point in the lower anterior pelvis likely secondary
to stricture, scattered areas of bowel wall thickening consistent with inflammatory bowel disease on CT scan, requiring NG tube placement and then subsequent NG tube removal on 07/21.
Plan:
# Distal Partial small bowel obstruction secondary to stricture likely from Crohn's disease
# Crohn's disease on Skyrizi (2nd dose on 07/17)
- Patient successfully completed NG tube clamping trial on 07/21 with removal of tube around 7:30PM that same evening.
- He tolerated clears and low residue diet well yesterday.
- GI and General Surgery are following, appreciate their further insight into his case
- Continue IV fluids, Zofran and Dilaudid as needed, PPI. Will transition PPI to oral now that NG tube is removed.
- Electrolytes remain within normal limits
- Continue steroids. He will be discharged on a taper down to a 10mg prednisone maintenance dose which he will continue until his GI appointment on 08/12/2025. Reviewed the steroid taper instructions with him today which will also be included on his
discharge paperwork
- Will monitor
# Prediabetes
- Continue to hold metformin
- Continue with insulin sliding scale, glucose monitoring
# Anxiety/depression
- Continue Lexapro 20mg daily and Wellbutrin XR 150mg daily
# History of prior small bowel obstruction
# Polycystic liver disease
Full code
DVT prophylaxis: Subcu heparin q 12
Anticipated Discharge: Today
Subjective/Interval History
-
Date of Service: July 23, 2025
Patient was sitting comfortably in bed when I arrived. He tolerated thin liquids yesterday AM, and his diet was advanced to low residue with no return in his symptoms. He continues to be free of nausea, vomiting, abdominal pain. He continues to pass
gas and did successfully have a bowel movement last night. He does report that when he was eating yesterday he started to become full after eating only a small amount.
Objective Data
-
Labs:
Laboratory Results
07/23/25
06:08
WBC Pending
Hgb Pending
Hct Pending
Plt Count Pending
Sodium Pending
Potassium Pending
Chloride Pending
Carbon Dioxide Pending
BUN Pending
Creatinine Pending
Glucose Pending
Calcium Pending
Vital Signs:
Vital Signs
Temp Pulse Resp BP Pulse Ox
98.3 F 55 18 135/67 94
07/22/25 23:11 07/22/25 23:11 07/22/25 23:11 07/22/25 23:11 07/22/25 23:11
I&O
07/22/25 07/23/25 07/24/25
06:59 06:59 06:59
Intake Total 30 / 30 0 / 0
Output Total 650 / 650
Balance -620 / -620 0 / 0
Review of Systems
-
History Source: Patient
Constitutional: Denies Fever, No Appetite or Chills
Respiratory: Denies Cough or Trouble Breathing
Cardiac: Denies Chest Pain or Palpitations
Abdomen/GI: Denies Abdominal Pain, Nausea, Vomiting, Diarrhea or Constipated
Neuro: Denies Headache
Physical Exam
-
General: Well Developed, Well Nourished, No Apparent Distress and Comfortable
HEENT: Normocephalic and Atraumatic
Respiratory: Clear to Auscultation
Cardiac: Regular Rhythm and S1/S2
GI: Soft, Nontender and Normal Bowel Sounds
Skin: Warm and Dry
Neuro: Awake, Alert and Oriented
Psych: Calm and Intact Judgement/Insight
--- NOTE | 2025-07-23 07:17 | W.DCSUMMARY ---
Addendum entered and electronically signed by Milan Garg MD 07/23/25 23:22:
Read, reviewed, and agree. See same day progress note for additional details.
Julius Garg MD
Original Note:
Documented by User: Marguerite Rivas DO, Resident 07/23/25 13:41
Discharge Summary
Discharge Data
Date of Admission: 07/18/25
Date of Discharge: 07/23/25
-
Pending Results: No
Hospital Course
Discharging Physician : Milan Garg MD
Disposition : Good
Primary care physician : Hank Gotti L, MD
Principal Discharge diagnosis : Partial Small Bowel Obstrution
Chronic Discharge diagnosis : Crohn's Disease, polycystic liver/kidney disease, Anxiety, depression, pre diabetes, polycystic liver disease, hyperlipidemia
Hospital Course :
This is a 59 y/o male with pmhx of polycystic liver/kidney disease, Crohn�s disease diagnosed in 2024 (Currently on Skyrizi s/p 2nd dose), history of small bowel obstruction in 2021 and 2022, anxiety, depression, pre diabetes, hyperlipidemia who
presented to the ED on 07/18/2025 with nausea, vomiting, hiccups and abdominal pain that began the night prior. He contacted his GI doctor via phone, and was instructed to report to the ED.
In the ED, his WBC was elevated at 18.2. CT scan showed distal small bowel structure with transition point in the lower anterior pelvis likely secondary to stricture, scattered areas of bowel wall thickening consistent with inflammatory bowel
disease. NG tube was placed with initially drained 1600cc. He was admitted to the hospital for further management.
On 07/19/2025, he was started on IV methylprednisolone and PPI by Gastroenterology. He was seen by surgery for his small bowel obstruction, who recommended trial of nonoperative management. He was kept NPO over the weekend.
On 07/21 he had a trial of clamping his NG tube, which was successful and the NG tube was removed later that evening. His diet was advanced to clear liquids on 07/22, and to low residue diet that evening. He had a bowel movement later that night.
On 07/23 he was found to be medically stable and cleared for discharge to home. He was encouraged to follow up with his PCP in less than 1 week. He also has an appointment scheduled with outpatient gastroenterology on 08/12/2025. He is to maintain a
low residue diet until then. He will be discharged on a steroid taper down to 10mg daily, which he will maintain until his gastroenterology appointment.
Important imaging findings : CT scan showed distal small bowel structure with transition point in the lower anterior pelvis likely secondary to stricture, scattered areas of bowel wall thickening consistent with inflammatory bowel disease.
Procedure findings : N/a
Discharge Plan
-
Patient Disposition: Home (Routine Discharge)
Discharge Diagnosis/Procedures: Partial Small Bowel Obstruction, Crohn�s disease
Condition: Good
Diet: Low Residue
Activity: No restrictions
Driving Restrictions: As prior to admission
Bathing Restrictions: None
Referrals:
Hank Gómez MD [Family Provider, Family Practice] - in less than 1 week
Eugenia Owen MD [Active, Gastroenterology] - 08/12/25 11:45 am
Referral Note: follow up as scheduled for remicade at 11:45pm then appt with Dr. Owen at 1 PM
Additional Discharge Medication Instructions: We are providing you with a prescription for Prednisone 10mg. Please take 6 tablets (60mg) for 7 days, then 5 tablets (50mg) for 7 days, then 2 tablets (20mg) for 7 days, then take 1 tablet until you are
seen by your health information technician on 08/12/2025.
Prescriptions:
New
prednisone 10 mg Tablet
10 mg PO DIRECTED Qty: 105 0RF
Rx Instructions:
Take By Mouth:
60 mg daily x7 days, 50 mg daily x7 days, 20 mg daily x7 days, 10 mg daily
Continued
metformin 500 mg Tablet
500 mg PO DAILY
fluticasone propionate [Flonase Allergy Relief] 50 mcg/actuation [place],Suspension
1 spray INTRANASAL DAILY
ondansetron 4 mg Tablet,Disintegrating
4 mg PO BIDPRN PRN (Reason: nausea/vomiting) Qty: 10 0RF
dicyclomine 10 mg capsule
10 mg PO BID PRN (Reason: Stomach pain) Qty: 20 0RF
Lexapro
20 mg PO DAILY
Wellbutrin
1 tab PO DAILY
Rx Instructions:
unsure of dose
Discharge Orders:
Discharge Patient (As Directed); Ordered 07/23/25
Ordered By: Marguerite Rivas
Discharge Date and Time
Discharge Date/Time: 07/23/25 14:13
Print Language: FRENCH

Documented by User: Milan Garg MD 07/23/25 23:19
Discharge Summary
Discharge Data
Date of Admission: 07/18/25
Date of Discharge: 07/23/25
Discharge Plan
-
Patient Disposition: Home (Routine Discharge)
Discharge Diagnosis/Procedures: Partial Small Bowel Obstruction, Crohn�s disease
Condition: Good
Diet: Low Residue
Activity: No restrictions
Driving Restrictions: As prior to admission
Bathing Restrictions: None
Referrals:
Hank Gómez MD [Family Provider, Family Practice] - in less than 1 week
Eugenia Owen MD [Active, Gastroenterology] - 08/12/25 11:45 am
Referral Note: follow up as scheduled for remicade at 11:45pm then appt with Dr. Owen at 1 PM
Additional Discharge Medication Instructions: We are providing you with a prescription for Prednisone 10mg. Please take 6 tablets (60mg) for 7 days, then 5 tablets (50mg) for 7 days, then 2 tablets (20mg) for 7 days, then take 1 tablet until you are
seen by your health information technician on 08/12/2025.
Prescriptions:
New
prednisone 10 mg Tablet
10 mg PO DIRECTED Qty: 105 0RF
Rx Instructions:
Take By Mouth:
60 mg daily x7 days, 50 mg daily x7 days, 20 mg daily x7 days, 10 mg daily
Continued
metformin 500 mg Tablet
500 mg PO DAILY
fluticasone propionate [Flonase Allergy Relief] 50 mcg/actuation [place],Suspension
1 spray INTRANASAL DAILY
ondansetron 4 mg Tablet,Disintegrating
4 mg PO BIDPRN PRN (Reason: nausea/vomiting) Qty: 10 0RF
dicyclomine 10 mg capsule
10 mg PO BID PRN (Reason: Stomach pain) Qty: 20 0RF
Lexapro
20 mg PO DAILY
Wellbutrin
1 tab PO DAILY
Rx Instructions:
unsure of dose
Discharge Orders:
Discharge Patient (As Directed); Ordered 07/23/25
Ordered By: Marguerite Rivas
Discharge Date and Time
Discharge Date/Time: 07/23/25 14:13
Print Language: FRENCH
[2025-07-23 07:21] LABS: Hematocrit 43.7 % (39.0-52.0); Hemoglobin 15.2 g/dL (13.0-18.0); Mean Corp Hgb Conc. 34.8 g/dL (33.0-37.0); Mean Corpuscular Volume 88.3 fL (80.0-94.0); Platelet Count 257 10^3/uL (130-400); Red Cell Dist. Width 13.0 % (11.5-14.5)
[2025-07-23 07:30] VITALS: BP 153/78
[2025-07-23 07:34] LABS: Blood Urea Nitrogen 22 mg/dl (9-20); Calcium 9.1 mg/dl (8.4-10.2); Carbon Dioxide 28 mmol/L (22-30); Chloride 107 mmol/L (98-107); Estimated Creatinine Clearance 86 ml/min; Glucose 113 mg/dl (70-99); Potassium 4.5 mmol/L (3.5-5.1); Sodium 137 mmol/L (135-145); eGFR > 60.00
[2025-07-23 07:47] LABS: C-Reactive Protein < 5.00 mg/L (0.0-10.00)
[2025-07-23] MEDS: LEXAPRO 20 MG PO (09:16)
[2025-07-23] MEDS: WELLBUTRIN XL (24 hour extended release) 150 MG PO (09:17)
[2025-07-23] MEDS: PROTONIX 40 MG PO (09:17)
--- NOTE | 2025-07-23 09:25 | W.PN.CRS1 ---
Today's Communication / Plan
-
crohns meds per GI
go slow on LR
No plans for OR
Assessment/Plan
-
Crohns with PSBO.
WBC: 12.1 (14.9)
1. NGT out with flatus and feels well. Diet was advanced to low residue by medicine. I advised patient that if he has N/V he needs to back down and to go slow.
2. continue medical measures/steroids per GI.
3. No plans for surgery.
Subjective Data
Subjective Data
Date of Service: July 23, 2025
Patient states he feels well. He had a normal BM this morning. Denies nausea or vomiting. Tolerating a diet. Pain is controlled.
Objective Data
-
Vital Signs
Temp Pulse Resp BP Pulse Ox
97.6 F 48 18 153/78 98
07/23/25 07:30 07/23/25 07:30 07/23/25 07:30 07/23/25 07:30 07/23/25 07:30
Intake & Output
07/22/25 07/23/25 07/24/25
06:59 06:59 06:59
Intake Total 30 / 30 0 / 0
Output Total 650 / 650
Balance -620 / -620 0 / 0
Intake:
Oral fluids 0 / 0
IV fluids (Total) 0 / 0
IV piggybacks 0 / 0
Amount instilled into GI Tube ( 30 / 30
Total)
[place] Sump 30 / 30
Output:
Gastrointestinal tube output ( 350 / 350
Total)
[place] Sump 350 / 350
Urine, Voided 300 / 300
Other:
Number of approximated MODERATE 1 2
amounts of urine
Lab Results
07/23/25 06:08
07/23/25 06:08
Physical Exam
-
General: No Acute Distress and AOx3
Abdomen: Soft, Non Distended and Non Tender
Skin: Warm and Dry
--- NOTE | 2025-07-23 09:43 | CM ---
Addendum entered by Leona Sawyer RN 07/23/25 12:46:
Spoke with patient in room . He said he was ready for discharge.
His Stacey will drive him home.
Declined VN .
Original Note:
GI involved.
NG discontinued.
Advancing low residual diet slowly .
PLAN home no needs
[2025-07-23] MEDS: DELTASONE 60 MG PO (10:04)
--- NOTE | 2025-07-23 11:33 | W.PN.GI.CBS2 ---
Today's Communication / Plan
-
C/w low residue diet
Ok from GI perspective for hosp d/c
Will need rx for slow pred taper as above
He already has Skyrizi infusion scheduled and OP FU with Dr Owen 08/12
Assessment / Plan
-
Pt is a 59yo with hx hypercholesterolemia, pre DM, anxiety/depression, polycystic liver disease, retroperitoneal lymphangiomatosis, melanoma, tobacco abuse, daily Marijuana use, b/l ocular HTN, meningitis, glaucoma and newly diagnosed crohns
disease. Pt has history of colonoscopy in 2014 with TI erosions, PSBO in 2021 and 2022 with possible gastroenteritis then presented in January with recurrent abdominal pain with nausea and vomiting with SB thickening and concern for crohns disease.
He had follow up with Dr. Owen in February and completed EGD, colonoscopy and MRE with continued concern for crohns disease. Pt was started on Skyrizi on 06/19 and went for second dose 07/17/25. He called on office 07/18 with concern for vomiting,
hiccups and abdominal pain and directed to ER. On admission noted with CT concern for distal SBO likely secondary to stricture. NGT was placed and IV steroids given on admission. 06/10 CRP 44, ESR 41, fecal radha 5690. In review with patient he
did not recall any concern for IBD in 2014 with colonoscopy. He then began with obstruction then crohns diagnosis as above. He admits to recent anxiety and depression issues with tapia of medication with Lexapro and diarrhea several months ago.
He began about 10 days prior to admission with vomiting after crab imperial. Symptoms then resolved and he the started again with vomiting on 07/19 in the AM and symptoms progressed with increased pain leading to admission. Pt otherwise admits to
GERD which is new with nausea/vomiting initially small volume dark brown emesis then large volume up to 1600ml recorded after NGT placement with continued drainage. He admits to improved abdominal pain, and admits to diarrhea several months ago and
occasional constipation. + 25 lbs wt loss over last few months. No blood or black in stools. On admission WBC 18,200, glucose 138 with otherwise stable labs. Denies NSAID use.
07/18/25 CT Abd/Pel (IV only)-DH only
1. Distal small bowel obstruction with transition point in the low anterior pelvis likely secondary to stricture.
2. Scattered areas of bowel wall thickening in keeping with inflammatory bowel disease
05/23/25- MRE Multiple regions of abnormal wall thickening and enhancement of the small bowel, including the distal ileum. Findings very likely represent Crohn's disease with skip areas of small bowel involvement.
No evidence for significant bowel obstruction at this time.Hepatomegaly with innumerable hepatic cysts. Cholelithiasis. No evidence for biliary ductal dilation.
04/28/25- colonoscopy 2- 4-6 mm polyp TC- TA , 1 -6 mm TA polyp CA, 1 - 6 mm polyp DC - HP, few ulcer TI c/w crohns disease - bx focal acute mucosal ulceration, with chronic active ileitis glandular crypt distortion
04/28/25- EGD normal esophagus, small HH normal duodenum SB bx neg
Impression
-distal SBO with concern for crohn's related inflammatory vs stricture
-hx crohn's disease with newly started Skyrizi
-polycystic liver disease
-leukocytosis
-mild elevated FBS with hx pre DM
-anxiety/depression with diarrhea with Lexapro
other med problems:
hypercholesterolemia, pre DM, anxiety/depression, polycystic liver disease, retroperitoneal lymphangiomatosis, melanoma, b/l ocular HTN, meningitis, glaucoma
Plan:
Tolerating LRD
Ok from GI perspective for hosp d/c today
Transitioned to pred 60mg. Upon d/c long taper will need forx pred 60mg x7 days then 50mg x7 days then down to 10mg daily
To resume skyrizi infusion outpatient
OP follow up with Dr. Owen -- he is scheduled 08/[address] Owen follow up that day
GI will sign off please call for?
Subjective
Subjective
Date of Service: July 23, 2025
He feels well tolerating low residue diet without abd pain. Walking hallways
Objective
Data Reviewed
Laboratory Data:
Laboratory Results
07/23/25 06:08
07/23/25 06:08
Laboratory Results
Total Bilirubin 0.9 mg/dl (0.2-1.3) 07/22/25 06:37
AST 21 U/L (17-59) 07/22/25 06:37
ALT 14 U/L (0-50) 07/22/25 06:37
Alkaline Phosphatase 49 U/L (38-126) 07/22/25 06:37
Lipase 188 U/L (23-300) 07/18/25 17:47
Vital Signs and I&O:
Vital Signs
Temp Pulse Resp BP Pulse Ox
97.6 F 48 18 153/78 98
07/23/25 07:30 07/23/25 07:30 07/23/25 07:30 07/23/25 07:30 07/23/25 08:00
I&O
07/22/25 07/23/25 07/24/25
06:59 06:59 06:59
Intake Total 30 0 / 0
Output Total 650 / 650
Balance -620 / -620 0 / 0
Physical Exam
Physical Exam
GEN: No acute distress, conversant, pleasant
HEENT: anicteric, extraocular movements intact, clear oropharynx without exudates
GI: soft, non-distended, not tender to palpation, thin normal active bowel sounds, no hepatosplenomegaly
EXT: warm, well perfused,trace edema bilaterally
NEURO: AAOx3, non-focal
[2025-07-23 11:51] LABS: Glucose - Point of Care 92 mg/dl (70-99)
== END 2025-07-23 14:13 | disposition home or self-care (01) | DRG 386 ==
LOC: 4 EAST ACU 20:54
PROVIDERS: Emergency Medicine; Physician Assistant; Surgery; ADMITTING PHYSICIAN Hospitalist; ATTENDING PHYSICIAN Family Medicine; CONSULT PHYSICIAN Internal Medicine; CONSULT PHYSICIAN Surgery; EMERGENCY PHYSICIAN Student in an Organized Health Care Education/Training Program; FAMILY PHYSICIAN Family Medicine
PROC: 0D9670Z Drainage of Stomach with Drainage Device, Via Natural or Artificial Opening (ICD-10-PCS; 2025-07-18)
DX: K50.812 Crohn's disease of both small and large intestine with intestinal obstruction (principal); K56.690 Other partial intestinal obstruction; Q44.6 Cystic disease of liver; K63.3 Ulcer of intestine; E11.9 Type 2 diabetes mellitus without complications; F41.9 Anxiety disorder, unspecified; F32.A Depression, unspecified; F12.90 Cannabis use, unspecified, uncomplicated; H40.9 Unspecified glaucoma; K21.9 Gastro-esophageal reflux disease without esophagitis; K76.89 Other specified diseases of liver; R16.0 Hepatomegaly, not elsewhere classified; F17.210 Nicotine dependence, cigarettes, uncomplicated; E78.00 Pure hypercholesterolemia, unspecified; K80.20 Calculus of gallbladder without cholecystitis without obstruction; Z79.84 Long term (current) use of oral hypoglycemic drugs; Z79.899 Other long term (current) drug therapy; Z86.61 Personal history of infections of the central nervous system; Z85.820 Personal history of malignant melanoma of skin
CPT/HCPCS: 43752; 74177; 80048; 80053; 82962; 83036; 83690; 84134; 84484; 85025; 85027; 85652; 86140; 93005; 96374; 96375; 96376; 99285; Q9967